=== PATIENT | female | born 1980 | race Caucasian/White ===

== ENCOUNTER 2019-05-11 22:26 | Emergency (ER) | payer BC, OTHER ==
[2019-05-11 22:33] VITALS: PULSE 95
[2019-05-12] MEDS ORDERED: diphenhydrAMINE 50 MG CAP PO STA (00:06)
--- NOTE | 2019-05-12 00:08 | ED ---
Anxiety HPI - General Chief Complaint: Anxiety Stated Complaint: chest tightness sob Time Seen by Provider: 05/11/19 23:28 Source: patient Mode of arrival: ambulatory - History of Present Illness Initial Comments: Patient is a 38-year-old woman who presents to be evaluated for palpitations. She states she has been having occasional feelings of fluttering in her chest. These last for briefly for second or 2. They're not accompanied by pain. The patient states that tonight after she had a couple of these she began feeling like she was going to . She states that she may been hyperventilating and while go to the hospital. She states that in the interval since arriving here she has had resolution of the symptoms. She did not have chest pain. No dyspnea. No diaphoresis, nausea or vomiting. There is no lightheadedness coming symptoms or syncope. She states palpitations have been coming and going for number weeks. She believes that there may be some stress contributing. MD Complaint: anxiety, other (Palpitations) -: days(s) Symptoms: palpitations, dry mouth, sense of impending doom Place: home Previous History of Same: Yes Severity: severe Quality: improving Provoking factors: emotional stress Improves With: nothing Worsens With: nothing - Related Data Home Medications: Home Medications Medication Instructions Recorded Confirmed Escitalopram [Lexapro] 10 mg PO DAILY 05/11/19 05/11/19 Allergies/Adverse Reactions: Allergies Allergy/AdvReac Type Severity Reaction Status Date / Time No Known Allergies Allergy Verified 05/11/19 23:33 Review of Systems ROS Statement: Those systems with pertinent positive or pertinent negative responses have been documented in the HPI. ROS Other: All systems not noted in ROS Statement are negative. Constitutional: Denies: fever, weakness Eyes: Denies: vision change Respiratory: Denies: cough, dyspnea Cardiovascular: Reports: palpitations. Denies: chest pain, dyspnea on exertion, edema, syncope Gastrointestinal: Denies: abdominal pain, nausea, vomiting Musculoskeletal: Denies: back pain Neurological: Denies: headache, weakness, confusion Psychiatric: Reports: anxiety. Denies: depression Past Medical History Past Medical History: No Reported History History of Any Multi-Drug Resistant Organisms: None Reported Past Surgical History: Section Past Psychological History: Anxiety Smoking Status: Never smoker Past Alcohol Use History: Occasional Past Drug Use History: None Reported General Exam Limitations: no limitations General appearance: alert, in no apparent distress, anxious Head exam: Present: atraumatic, normocephalic Eye exam: Present: normal appearance. Absent: scleral icterus, conjunctival injection ENT exam: Present: normal oropharynx Respiratory exam: Present: normal lung sounds bilaterally. Absent: respiratory distress, wheezes, rales, rhonchi, stridor Cardiovascular Exam: Present: regular rate, normal rhythm, normal heart sounds. Absent: systolic murmur, diastolic murmur, rubs, gallop GI/Abdominal exam: Present: soft. Absent: distended, tenderness, guarding, rebound, rigid, mass Extremities exam: Present: normal inspection, normal capillary refill. Absent: pedal edema, calf tenderness Back exam: Present: normal inspection. Absent: CVA tenderness (R), CVA tenderness (L) Neurological exam: Present: alert Psychiatric exam: Present: anxious. Absent: depressed, suicidal ideation Skin exam: Present: warm, dry, intact, normal color. Absent: rash Course Vital Signs 05/11/19 22:28 Temperature 98.3 F Pulse Rate 95 Respiratory 16 Rate Blood Pressure 125/75 O2 Sat by Pulse 100 Oximetry Disposition Clinical Impression: Panic attack Disposition: HOME SELF-CARE Condition: Good Instructions (If sedation given, give patient instructions): Heart Palpitations (DC), Panic Attack (ED) Is patient prescribed a controlled substance at d/c from ED?: No Referrals: Gerson Min MD [Primary Care Provider] - 1-2 days Ramesh Griffiths MD [STAFF PHYSICIAN] - 1-2 days
[2019-05-12 00:58] VITALS: BP 151/96; RESP 18; TEMP 98.7
== END 2019-05-12 00:56 | disposition home or self-care (01) ==
LOC: EC 22:26
DX: F41.0 Panic disorder [episodic paroxysmal anxiety] (principal); R00.2 Palpitations; Z79.899 Other long term (current) drug therapy
CPT/HCPCS: 93005; 99283

== ENCOUNTER 2019-07-17 16:30 | Inpatient (IN) | payer BC, MEDICAID ==
--- NOTE | 2019-07-17 17:01 | ED ---
Psych HPI - General Source: patient, RN notes reviewed, old records reviewed Mode of arrival: ambulatory Limitations: no limitations - History of Present Illness MD Complaint: suicidal ideation, feels depressed -: month(s) Associated Psychiatric Symptoms: depression, suicidal ideation History of same: Yes Quality: constant Improves With: none Worsens With: none Context: not taking psychiatric medications Associated Symptoms: denies other symptoms Treatments Prior to Arrival: placed on mental health hold If Self Harm: admits thoughts of self harm <Robin Jefferson - Last Filed: 07/17/19 20:41> <Rito Cummings - Last Filed: 07/17/19 22:02> - General Chief Complaint: Psychiatric Symptoms Stated Complaint: EPS eval Time Seen by Provider: 07/17/19 16:40 - History of Present Illness Initial Comments: This is a 39-year-old female to ER for evaluation. Patient presents today for evaluation regards to psychiatric illness. Patient presents with her friend stating that she is does not feel like she can trust herself does have a at home with 3 kids. No drugs or alcohol. She is to drink a little bit when she had a psychiatric panic attack about 2 months ago since then patient is not drank she's been on 2 different psychiatric medications. Patient has no improve the segment after medications exam making her worse and currently does feel suicidal (Robin Jefferson) - Related Data Home Medications Medication Instructions Recorded Confirmed ALPRAZolam [Xanax] 0.25 - 0.5 mg PO HS PRN 07/17/19 07/17/19 Cholecalciferol (Vitamin D3) 6,000 units PO DAILY 07/17/19 07/17/19 [Vitamin D3] Geritol Liquid 15 ml PO DAILY 07/17/19 07/17/19 Sertraline [Zoloft] 50 mg PO HS 07/17/19 07/17/19 Allergies Allergy/AdvReac Type Severity Reaction Status Date / Time No Known Allergies Allergy Verified 07/17/19 18:15 Review of Systems ROS Other: All systems not noted in ROS Statement are negative. <Robin Jefferson - Last Filed: 07/17/19 20:41> ROS Other: All systems not noted in ROS Statement are negative. <Rito Cummings - Last Filed: 07/17/19 22:02> ROS Statement: Those systems with pertinent positive or pertinent negative responses have been documented in the HPI. Past Medical History Past Medical History: No Reported History History of Any Multi-Drug Resistant Organisms: None Reported Past Surgical History: Section Past Psychological History: Anxiety, Depression Smoking Status: Never smoker Past Alcohol Use History: Occasional Past Drug Use History: None Reported <Robin Jefferson - Last Filed: 07/17/19 20:41> General Exam Limitations: no limitations General appearance: alert, in no apparent distress Head exam: Present: atraumatic, normocephalic, normal inspection Eye exam: Present: normal appearance, PERRL, EOMI. Absent: scleral icterus, conjunctival injection, periorbital swelling ENT exam: Present: normal exam, mucous membranes moist Neck exam: Present: normal inspection. Absent: tenderness, meningismus, lymphadenopathy Respiratory exam: Present: normal lung sounds bilaterally. Absent: respiratory distress, wheezes, rales, rhonchi, stridor Cardiovascular Exam: Present: regular rate, normal rhythm, normal heart sounds. Absent: systolic murmur, diastolic murmur, rubs, gallop, clicks GI/Abdominal exam: Present: soft, normal bowel sounds. Absent: distended, tenderness, guarding, rebound, rigid Extremities exam: Present: normal inspection, full ROM, normal capillary refill. Absent: tenderness, pedal edema, joint swelling, calf tenderness Back exam: Present: normal inspection Neurological exam: Present: alert, oriented X3, CN II-XII intact Psychiatric exam: Present: normal affect, normal mood Skin exam: Present: warm, dry, intact, normal color. Absent: rash <Robin Jefferson - Last Filed: 07/17/19 20:41> Course <Robin Jefferson - Last Filed: 07/17/19 20:41> Vital Signs 07/17/19 16:34 Temperature 98.8 F Pulse Rate 88 Respiratory 18 Rate Blood Pressure 149/96 O2 Sat by Pulse 98 Oximetry - Reevaluation(s) Reevaluation #1: 07/17/19 17:42 Medically clear for psychiatric evaluation (Robin Jefferson) Medical Decision Making <Rito Cummings - Last Filed: 07/17/19 22:02> - Medical Decision Making . Female whose care was signed out at shift change awaiting EPS evaluation, presenting with depression and suicidal ideation. Patient does voluntarily sign in for psychiatric evaluation and treatment. She will be admitted to this institution. (Rito Cummings) Disposition <Robin Jefferson - Last Filed: 07/17/19 20:41> Is patient prescribed a controlled substance at d/c from ED?: No Decision to Admit Reason: Admit from EC Decision Date: 07/17/19 Decision Time: 22:02 <Rito Cummings - Last Filed: 07/17/19 22:02> Clinical Impression: Depression, Suicidal ideation Disposition: ADMITTED IP TO THIS HOSP Condition: Stable Referrals: Gerson Min MD [Primary Care Provider] - 1-2 days
[2019-07-17] MEDS ORDERED: ACETAMINOPHEN TAB 500 MG TAB PO STA (20:44)
[2019-07-17] MEDS ORDERED: ONDANSETRON ODT 4 MG TAB PO STA (20:44)
[2019-07-17] MEDS ORDERED: ZIPRASIDONE 20 MG VIAL IM PRN (23:45)
[2019-07-17] MEDS ORDERED: MAGNESIUM HYDROXIDE 2,400 MG/10 ML CUP PO PRN (23:45)
[2019-07-17] MEDS ORDERED: ACETAMINOPHEN TAB 325 MG TAB PO PRN (23:45)
[2019-07-17] MEDS ORDERED: MAG HYDROX/AL HYDROX/SIMETH 30 ML CUP PO PRN (23:45)
[2019-07-17] MEDS ORDERED: SERTRALINE 100 MG TAB PO SCH (23:45)
[2019-07-17] MEDS ORDERED: LORazepam 2 MG/ML INJ IM PRN (23:47)
[2019-07-18 01:03] LABS: Appearance,Urine Cloudy (Clear); Bilirubin,Urine Negative (Negative); Blood,Urine Negative (Negative); Color,Urine Yellow; Glucose,Urine (UA) Negative (Negative); Hyaline Casts,Urine 5 /lpf (0-2); Ketones,Urine Negative (Negative); Leukocyte Esterase,Urine Negative (Negative); Mucus,Urine Many /hpf; Nitrite,Urine Negative (Negative); Protein,Urine Trace (Negative); RBC,Urine 1 /hpf (0-5); Specific Gravity,Urine 1.016 (1.001-1.035); Squamous Epithelial Cell,Urine 1 /hpf (0-4); Urobilinogen,Urine <2.0 mg/dL (<2.0); WBC,Urine 1 /hpf (0-5)
[2019-07-18] MEDS: LORazepam 1 MG TAB PO PRN (07:27)
[2019-07-18 08:39] LABS: Basophils # (A) 0.1 k/uL (0-0.2); Basophils % (A) 1 %; Eosinophils # (A) 0.1 k/uL (0-0.7); Eosinophils % (A) 2 %; HCT 37.7 % (34.0-46.0); HGB 11.8 gm/dL (11.4-16.0); Hypochromasia Marked; Lymphocytes % (A) 30 %; MCH 23.7 pg (25.0-35.0); MCHC 31.3 g/dL (31.0-37.0); MCV 75.6 fL (80.0-100.0); Mean Platelet Volume 7.8; Microcytosis Slight; Monocytes # (A) 0.5 k/uL (0-1.0); Monocytes % (A) 7 %; Neutrophils # (A) 3.9 k/uL (1.3-7.7); Neutrophils % (A) 59 %; Platelet Count 340 k/uL (150-450); RBC 4.99 m/uL (3.80-5.40); RDW 15.6 % (11.5-15.5); WBC 6.7 k/uL (3.8-10.6)
[2019-07-18 08:54] LABS: ALT 16 U/L (4-34); AST 16 U/L (14-36); African American GFR (CKD) >90 (>60 ml/min/1.73 sqM); Albumin 4.4 g/dL (3.5-5.0); Alkaline Phosphatase 51 U/L (38-126); Anion Gap 8 mmol/L; Blood Urea Nitrogen 10 mg/dL (7-17); Calcium 9.7 mg/dL (8.4-10.2); Carbon Dioxide 29 mmol/L (22-30); Chloride 104 mmol/L (98-107); Cholesterol 113 mg/dL (<200); Glucose 105 mg/dL (74-99); HDL Cholesterol 40 mg/dL (40-60); LDL Cholesterol,Calculated 44 mg/dL (0-99); Non-African American GFR(CKD) >90 (>60 ml/min/1.73 sqM); Potassium 3.9 mmol/L (3.5-5.1); Sodium 141 mmol/L (137-145); Total Bilirubin 0.5 mg/dL (0.2-1.3); Total Protein 7.6 g/dL (6.3-8.2); Triglycerides 145 mg/dL (<150)
[2019-07-18] MEDS ORDERED: CHOLECALCIFEROL 6000 UNIT PO SCH (09:00)
[2019-07-18] MEDS: CHOLECALCIFEROL 1,000 UNIT TAB PO SCH (11:53)
[2019-07-18] MEDS: SERTRALINE 100 MG TAB PO SCH (12:47)
[2019-07-18] MEDS: busPIRone HCl 10 MG TAB PO SCH ×2 (12:47→22:46)
--- NOTE | 2019-07-18 12:49 | P.HP ---
Psychiatric H&P - . H&P Date: 07/18/19 History & Physical: Allergies Allergy/AdvReac Type Severity Reaction Status Date / Time No Known Allergies Allergy Verified 07/18/19 01:10 Vital Signs Temp 98.2 F 07/18/19 00:06 Pulse 128 H 07/18/19 07:28 Resp 14 07/18/19 00:06 BP 169/84 07/18/19 07:28 Pulse Ox 100 07/18/19 00:06 Intake & Output 07/17/19 07/18/19 07/18/19 18:59 06:59 18:59 Weight 124.738 kg 124.313 kg Laboratory Last Values WBC 6.7 k/uL (3.8-10.6) 07/18/19 08:29 RBC 4.99 m/uL (3.80-5.40) 07/18/19 08:29 Hgb 11.8 gm/dL (11.4-16.0) 07/18/19 08:29 Hct 37.7 % (34.0-46.0) 07/18/19 08:29 MCV 75.6 fL (80.0-100.0) L 07/18/19 08:29 MCH 23.7 pg (25.0-35.0) L 07/18/19 08:29 MCHC 31.3 g/dL (31.0-37.0) 07/18/19 08:29 RDW 15.6 % (11.5-15.5) H 07/18/19 08:29 Plt Count 340 k/uL (150-450) 07/18/19 08:29 Neutrophils % 59 % 07/18/19 08:29 Lymphocytes % 30 % 07/18/19 08:29 Monocytes % 7 % 07/18/19 08:29 Eosinophils % 2 % 07/18/19 08:29 Basophils % 1 % 07/18/19 08:29 Neutrophils # 3.9 k/uL (1.3-7.7) 07/18/19 08:29 Lymphocytes # 2.0 k/uL (1.0-4.8) 07/18/19 08:29 Monocytes # 0.5 k/uL (0-1.0) 07/18/19 08:29 Eosinophils # 0.1 k/uL (0-0.7) 07/18/19 08:29 Basophils # 0.1 k/uL (0-0.2) 07/18/19 08:29 Hypochromasia Marked 07/18/19 08:29 Microcytosis Slight 07/18/19 08:29 Sodium 141 mmol/L (137-145) 07/18/19 08:29 Potassium 3.9 mmol/L (3.5-5.1) 07/18/19 08:29 Chloride 104 mmol/L (98-107) 07/18/19 08:29 Carbon Dioxide 29 mmol/L (22-30) 07/18/19 08:29 Anion Gap 8 mmol/L 07/18/19 08:29 BUN 10 mg/dL (7-17) 07/18/19 08:29 Creatinine 0.78 mg/dL (0.52-1.04) 07/18/19 08:29 Est GFR (CKD-EPI)AfAm >90 (>60 ml/min/1.73 sqM) 07/18/19 08:29 Est GFR (CKD-EPI)NonAf >90 (>60 ml/min/1.73 sqM) 07/18/19 08:29 Glucose 105 mg/dL (74-99) H 07/18/19 08:29 Calcium 9.7 mg/dL (8.4-10.2) 07/18/19 08:29 Total Bilirubin 0.5 mg/dL (0.2-1.3) 07/18/19 08:29 AST 16 U/L (14-36) 07/18/19 08:29 ALT 16 U/L (4-34) 07/18/19 08:29 Alkaline Phosphatase 51 U/L (38-126) 07/18/19 08:29 Total Protein 7.6 g/dL (6.3-8.2) 07/18/19 08:29 Albumin 4.4 g/dL (3.5-5.0) 07/18/19 08:29 Triglycerides 145 mg/dL (<150) 07/18/19 08:29 Cholesterol 113 mg/dL (<200) 07/18/19 08:29 LDL Cholesterol, Calc 44 mg/dL (0-99) 07/18/19 08:29 HDL Cholesterol 40 mg/dL (40-60) 12/17/19 08:29 TSH 1.710 mIU/L (0.465-4.680) 07/18/19 08:29 Urine Color Yellow 07/18/19 00:20 Urine Appearance Cloudy (Clear) H 07/18/19 00:20 Urine pH 6.0 (5.0-8.0) 07/18/19 00:20 Ur Specific [place] 1.016 (1.001-1.035) 07/18/19 00:20 Urine Protein Trace (Negative) H 07/18/19 00:20 Urine Glucose (UA) Negative (Negative) 07/18/19 00:20 Urine Ketones Negative (Negative) 07/18/19 00:20 Urine Blood Negative (Negative) 07/18/19 00:20 Urine Nitrite Negative (Negative) 07/18/19 00:20 Urine Bilirubin Negative (Negative) 07/18/19 00:20 Urine Urobilinogen <2.0 mg/dL (<2.0) 07/18/19 00:20 Ur Leukocyte Esterase Negative (Negative) 07/18/19 00:20 Urine RBC 1 /hpf (0-5) 07/18/19 00:20 Urine WBC 1 /hpf (0-5) 07/18/19 00:20 Ur Squamous Epith Cells 1 /hpf (0-4) 07/18/19 00:20 Hyaline Casts 5 /lpf (0-2) H 07/18/19 00:20 Urine Mucus Many /hpf (None) H 07/18/19 00:20 Urine HCG, Qual Not Detected (Not Detectd) 07/18/19 00:20 07/18/19 12:38 IDENTIFYING DATA: Patient is a 39-year-old female who is currently has 3 kids lives at home and 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 HPI: Patient presented to the hospital and seen in the emergency department for depression, suicidal ideations and anxiety. Patient endorsed having panic attacks recently. Patient was admitted to the mental health unit and was agreeable to seek to display card writer for admission. She states that for the past 7 years she has been having a progressive increase in her anxiety. She states that she has been having panic attacks daily which consist of her feeling short of breath, having palpitations, and a fear of . She states that she is finding it difficult to work and function at home. She states that her is not supportive of her and that she is having frequent worry about her kids. Patient claims that she has been tried on different medications by her PCP including Zoloft 50 mg at night, Xanax 0.5 mg and also has tried Effexor in the past. Patient states that recently she has been having suicidal ideations and fear of overdosing at home. She admits to guilt and poor concentration. Poor sleep at home. She denies any recreational drug use at this time denies any alcohol or marijuana. Denies any cigarette use. Patient denies any suicidal or homicidal ideations intent or plan. At this time patient denies any auditory or visual hallucinations. PAST PSYCHIATRIC HISTORY: Patient states that she has previously been on Xanax, Effexor, Lexapro and Zoloft. She denies any inpatient psychiatric admissions in the past. She claims that she has been mainly treated by her primary care physician and has not seen a psychiatrist. No previous suicide attempts. PMH:denies ALLERGIES: as per EMR CHEMICAL DEPENDENCY HISTORY: as per HPI FAMILY PSYCHIATRIC/SUBSTANCE USE HISTORY: Claims that her mother had panic attacks and anxiety SOCIAL HISTORY: States that she was born and raised in [facility] and attended some college after high school. She currently works as a nurse's aide and nearby hospital is currently and has 3 kids and lives in a house. MENTAL STATUS EXAM: General Appearance: [Patient appears to be overweight, stated age is alert, and attempts to cooperate. Patient appears to be tearful and anxious, fair hygiene and grooming. Behavior: Patient is anxiously seated without any agitated behavior. Tearful. Speech: Patient's speech is fluent and nonpressured. Hesitant. Mood/Affect: Patient reports their mood is Vinay anxious, affect is congruent and tearful. Suicidality/Homicidality: Patient denies having any suicidal or homicidal ideation intent or plan. Perceptions: Patient denies any auditory or visual hallucinations. Though content/process: There is no evidence of any delusional thought content and thought process is linear and goal-directed. Catastrophizing. Memory and concentration: AOX3, grossly intact for the purposes of this session. Can spell "WORLD" backwards Judgment and insight: Fair STRENGTHS/WEAKNESSES: strength is that patient is resilient, weaknesses that patient has chronic mental illness and multiple home stressors. INTELLECT: average IMPRESSIONS: Depressive disorder unspecified Panic disorder without agoraphobia PLAN: -Patient is admitted under voluntary status to MHU for stabilization of psychiatric symptoms and safety. Patient signed adult voluntary form and medication consent and is placed in patient's chart. -Medications : Will start patient on Zoloft 100 mg daily for anxiety/mood. We'll also start patient on BuSpar 10 mg twice a day for anxiety. We'll start trazodone 50 mg daily at bedtime for sleep/mood. -Ativan and Geodon PRN for agitation/aggression -Patient was informed of the risks, benefits and side effects of the medication and patient verbally consented to taking the medications. Patient signed med consent form and was placed in chart. -NRT - not need as patient does not spoke -SW on board for discharge planning
--- NOTE | 2019-07-18 13:57 | P.CONS ---
History of Present Illness - Reason for Consult Consult date: 07/18/19 medical management Requesting physician: Sergey Del Rosario - Chief Complaint Suicidal ideation, depression - History of Present Illness this is a 39-year-old femalewith history of anxiety, depression, panic disorder presented to the ER accompanied by a friend with ongoing depression,anxiety, suicidal. Reported to the ER doctor that she was suicidal,did not trust herself at home-afraid of overdosing herself.states she's been having a rough time over the last 2 months due to panic attacks,sleep deprivation, and personal issues at home. She reports feeling embarrassed being in the MHU.attempted to go to counseling prior to that experienced issues with insurance coverage followed by appointment times conflicting with work schedule. Denies recreational drugs/alcohol.Home medication regimen includes Zoloft, and xanax.suicide precautions initiated andadmitted to the mental health unit. afebrile, normal WBC.vital signs stable, maintaining O2 sats in the high 90s on room air.electrolytes within normal limits.UA negative. Review of Systems ROS Other: All systems not noted in ROS Statement are negative. ROS Statement: Those systems with pertinent positive or pertinent negative responses have been documented in the HPI. Past Medical History Past Medical History: No Reported History History of Any Multi-Drug Resistant Organisms: None Reported Past Surgical History: Adenoidectomy Past Psychological History: Anxiety, Depression, Panic Disorder Smoking Status: Never smoker Past Alcohol Use History: Occasional Past Drug Use History: None Reported Medications and Allergies Home Medications Medication Instructions Recorded Confirmed Type ALPRAZolam [Xanax] 0.25 - 0.5 mg PO HS PRN 07/17/19 07/18/19 History Cholecalciferol (Vitamin D3) 6,000 units PO DAILY 07/17/19 07/18/19 History [Vitamin D3] Geritol Liquid 15 ml PO DAILY 07/17/19 07/18/19 History Sertraline [Zoloft] 50 mg PO HS 07/17/19 07/18/19 History Allergies Allergy/AdvReac Type Severity Reaction Status Date / Time No Known Allergies Allergy Verified 07/18/19 01:10 Physical Exam Vitals: Vital Signs Temp Pulse Pulse Resp BP BP Pulse Ox 07/18/19 07:28 128 H 169/84 07/18/19 00:06 98.2 F 74 14 140/88 100 07/17/19 23:39 72 20 158/98 100 07/17/19 16:34 98.8 F 88 18 149/96 98 Intake and Output 07/17/19 07/18/19 07/18/19 22:59 06:59 14:59 Other: Weight 124.738 kg 124.313 kg PHYSICAL EXAM: VITAL SIGNS: [as above] GENERAL: sitting up in a chair,teary-eyed, no acute distress HEENT: Conjunctivae normal. eyes normal.oral mucosa moist NECK: No JVD. No thyroid enlargement. No LNs CARDIOVASCULAR: S1, S2 regular. No murmur RESPIRATION: Breath sounds diminished in the bases. No rhonchi or crackles. No bronchial breathing. ABDOMEN: Soft, nontender . No guarding. no masses palpable. No ascites, No hepatosplenomegaly.Bowel sounds heard. LEGS: No edema. no swelling PSYCHIATRY: Alert and oriented X3, mood and affect anxious, tearful. NERVOUS SYSTEM: Cranial N 2-12 grossly normal. Moves all 4 limbs. No focal deficits. Strength and sensation grossly intact.. Skin: no rash . Joints: No active swelling. No inflammation. Lymphatic system. No LN neck axilla. Results CBC & Chem 7: 07/18/19 08:29 07/18/19 08:29 Labs: Abnormal Lab Results - Last 24 Hours (Table) 07/18/19 07/18/19 07/18/19 Range/Units 00:20 08:29 08:29 MCV 75.6 L (80.0-100.0) fL MCH 23.7 L (25.0-35.0) pg RDW 15.6 H (11.5-15.5) % Glucose 105 H (74-99) mg/dL Urine Appearance Cloudy H (Clear) Urine Protein Trace H (Negative) Hyaline Casts 5 H (0-2) /lpf Urine Mucus Many H (None) /hpf Assessment and Plan Assessment: depression, suicidal ideation Anxiety panic disorder plan: Continue on current medication regime ,monitoring and symptomatic treatment. Home meds have been reviewed and resumed accordingly.further recommendations pending. Thank you for the consult. The impression and plan of care has been dictated as directed. : I performed a history and examination of this patient, discussed the same with the dictator. I agree with the dictator's note ,documented as a scribe. Any additional findings or plans will be noted.
[2019-07-18 19:36] LABS: Hemoglobin A1C 4.9 % (4.0-6.0)
[2019-07-18] MEDS: traZODone HCL 50 MG TAB PO SCH (22:46)
[2019-07-19] MEDS: LORazepam 1 MG TAB PO PRN (06:41)
[2019-07-19] MEDS: SERTRALINE 100 MG TAB PO SCH (08:46)
[2019-07-19] MEDS: busPIRone HCl 10 MG TAB PO SCH (08:46)
[2019-07-19] MEDS: CHOLECALCIFEROL 1,000 UNIT TAB PO SCH (08:46)
--- NOTE | 2019-07-19 12:24 | P.PN ---
Progress Note - Text Progress Note Date: 07/19/19 Subjective: Patient was seen wandering the hallways after activities group and was directable and agreeable to speak with leader writer in the office. Patient recieved 1mg of Ativan PO this morning for a panic attack. She states that she has been attempting to breathe slower and to use her coping skills and distraction techniques to help with her panic attacks. She did state that her anxiety has decreased mildly and she claims that she is not as tearful today which she is happy about. Patient states that she continues to feel guilt about being in the hospital and knows that she has many things to do at home when she returns. Patient claims that she has been going to groups and finding other patients on the unit to be helping her and keeping her distracted. At this time patient states that she did have some upset stomach yesterday however has improved today and was able to tolerate breakfast. Patient states that she slept through the night and claims that "I haven't had a good sleep-wake that in a long time". She admits to fair energy. At this time patient denies any auditory or visual hallucinations. She denies any suicidal or homicidal ideations, intent or plan. Does not endorse any delusions or paranoia. Mental Status Examination: General Appearance: Patient appears to be overweight, stated age is alert, and attempts to cooperate. Patient appears to be anxious, fair hygiene and grooming. Behavior: Patient is anxiously seated without any agitated behavior. Speech: Patient's speech is fluent and nonpressured. Hesitant. Mood/Affect: Patient reports their mood is depressed and anxious, affect is congruent Suicidality/Homicidality: Patient denies having any suicidal or homicidal ideation intent or plan. Perceptions: Patient denies any auditory or visual hallucinations. Though content/process: There is no evidence of any delusional thought content and thought process is linear and goal-directed. Catastrophizing. Memory and concentration: AOX3, grossly intact for the purposes of this session. Can spell "WORLD" backwards Judgment and insight: Fair Assessment: Depressive disorder unspecified Panic disorder without agoraphobia PLAN: -Patient is admitted under voluntary status to MHU for stabilization of psychiatric symptoms and safety. Patient signed adult voluntary form and medication consent and is placed in patient's chart. -Medications : Will increase Zoloft 150 mg daily for anxiety/mood. We'll increase BuSpar 15 mg twice a day for anxiety. We'll continue with trazodone 50 mg daily at bedtime for sleep/mood. -Ativan and Geodon PRN for agitation/aggression -Encouraged to continue attending groups and working on coping skills and distress tolerance. -NRT - not need as patient does not spoke -EKG reviewed. No acute abnormalities noted. -SW on board for discharge planning. Liekly discharge back home in 2-3 days.
[2019-07-19] MEDS: busPIRone HCl 5 MG TAB PO SCH (22:31)
[2019-07-19] MEDS: traZODone HCL 50 MG TAB PO SCH (22:31)
[2019-07-20] MEDS: busPIRone HCl 5 MG TAB PO SCH ×3 (09:32→23:09)
[2019-07-20] MEDS: SERTRALINE 100 MG TAB PO SCH (09:32)
[2019-07-20] MEDS: CHOLECALCIFEROL 1,000 UNIT TAB PO SCH (09:32)
--- NOTE | 2019-07-20 13:59 | P.PN ---
Progress Note - Text Progress Note Date: 07/20/19 Subjective: Patient was seen after eating her lunch and was directable and agreeable to speak with tag writer in the office. Patient claims that "today was not a good day" after stating that she had her visit her Wednesday night and appeared to be upset that patient was in the hospital and was saying that he wanted them both to be getting treatment and he should not be at home. Patient states that her went home and overdosed on her Xanax and Zoloft and told her about it which she then called his friend to pick them up and taken the hospital. Patient states that she has been more anxious and worried about her and claims that "he supposed to be my stable rock and he is doing something like this". Patient was also preoccupied about going back to her kids and states that her father is taking care of them at this time. Patient states that she feels the medication has been making her feel better and she is feeling less anxious overall. She did have a panic attack after finding about what was going on with her however has been using coping strategies and techniques to endeavor her attention and work on her breathing. She states that her nausea and upset stomach has been improving and is able to eat meals now. Patient states that she slept through the night with no problems. She admits to fair energy. At this time patient denies any auditory or visual hallucinations. She denies any suicidal or homicidal ideations, intent or plan. Does not endorse any delusions or paranoia. Mental Status Examination: General Appearance: Patient appears to be overweight, stated age is alert, and attempts to cooperate. Patient appears to be less anxious, fair hygiene and grooming. Behavior: Patient is anxiously seated without any agitated behavior. Speech: Patient's speech is fluent and nonpressured. Hesitant. Mood/Affect: Patient reports their mood is depressed and anxious, affect is congruent Suicidality/Homicidality: Patient denies having any suicidal or homicidal ideation intent or plan. Perceptions: Patient denies any auditory or visual hallucinations. Though content/process: There is no evidence of any delusional thought content and thought process is linear and goal-directed. Preoccupied with the safety of her . Memory and concentration: AOX3, grossly intact for the purposes of this session. Can spell "WORLD" backwards Judgment and insight: Fair Assessment: Depressive disorder unspecified Panic disorder without agoraphobia PLAN: -Patient is admitted under voluntary status to MHU for stabilization of psychiatric symptoms and safety. Patient signed adult voluntary form and medication consent and is placed in patient's chart. -Medications : Will continue with Zoloft 150 mg daily for anxiety/mood. We'll increase BuSpar 15 mg 3 times a day for anxiety. We'll continue with trazodone 50 mg daily at bedtime for sleep/mood. -Ativan and Geodon PRN for agitation/aggression -Encouraged to continue attending groups and working on coping skills and distress tolerance. -NRT - not need as patient does not spoke -SW on board for discharge planning. Liekly discharge back home early next week.
[2019-07-20] MEDS: traZODone HCL 50 MG TAB PO SCH (23:09)
[2019-07-21] MEDS: busPIRone HCl 5 MG TAB PO SCH ×3 (09:30→22:19)
[2019-07-21] MEDS: SERTRALINE 100 MG TAB PO SCH (09:31)
[2019-07-21] MEDS: CHOLECALCIFEROL 1,000 UNIT TAB PO SCH (09:31)
--- NOTE | 2019-07-21 12:59 | P.PN ---
Progress Note - Text Progress Note Date: 07/21/19 Subjective: Patient was seen wandering the hallways and was directable and agreeable to speak with headline writer in the office. Patient claims that she continues to feel anxiety during the day and feels "down" well-being in the hospital and continues to endorse some guilt. She states that she was able to get some relief yesterday when she learned that her was admitted to [facility] and she was able to speak with him on the phone and noted that he is doing better. She states that she has been having a decrease in her panic attacks and denies having one today/this morning. She states that she feels the medication is helping her gradually. Patient claims that she has been anxious about taking care of her kids and getting home before [place]. She also states that she has been trying to make new friends on the unit and going to groups. Patient claims that she did have some improvement in her sleep last night however was awoken by her roommate. She admits to fair energy. At this time patient denies any auditory or visual hallucinations. She denies any suicidal or homicidal i deations, intent or plan. Does not endorse any delusions or paranoia. Mental Status Examination: General Appearance: Patient appears to be overweight, stated age is alert, and attempts to cooperate. Patient has fair hygiene and grooming. Behavior: Patient is anxiously seated without any agitated behavior. Speech: Patient's speech is fluent and nonpressured. Hesitant/anxious. Mood/Affect: Patient reports their mood is depressed and anxious, affect is congruent Suicidality/Homicidality: Patient denies having any suicidal or homicidal ideation intent or plan. Perceptions: Patient denies any auditory or visual hallucinations. Though content/process: There is no evidence of any delusional thought content and thought process is linear and goal-directed. Memory and concentration: AOX3, grossly intact for the purposes of this session. Can spell "WORLD" backwards Judgment and insight: Fair, improving mildly. Assessment: Depressive disorder unspecified Panic disorder without agoraphobia PLAN: -Patient is admitted under voluntary status to MHU for stabilization of psychiatric symptoms and safety. Patient signed adult voluntary form and medication consent and is placed in patient's chart. -Medications : Will increase Zoloft 200 mg daily for anxiety/mood. We'll continue with BuSpar 15 mg 3 times a day for anxiety, this may be increased over the weekend if needed. We'll continue with trazodone 50 mg daily at bedtime for sleep/mood. -Ativan and Geodon PRN for agitation/aggression -Encouraged to continue attending groups and working on coping skills and distress tolerance. -NRT - not need as patient does not spoke -SW on board for discharge planning. Liekly discharge home on Wednesday.
[2019-07-21] MEDS: traZODone HCL 50 MG TAB PO SCH (23:19)
[2019-07-22] MEDS: CHOLECALCIFEROL 1,000 UNIT TAB PO SCH (09:32)
[2019-07-22] MEDS: busPIRone HCl 5 MG TAB PO SCH ×3 (09:32→23:45)
[2019-07-22] MEDS: SERTRALINE 100 MG TAB PO SCH (09:32)
--- NOTE | 2019-07-22 17:35 | P.PN ---
Progress Note - Text Progress Note Date: 07/22/19 over history: Patient is seen in cross coverage today. She reports that her mood is doing better. She did have a panic attack earlier this morning use her coping skills. She does not voice any adverse psychotropic medication side effects. She appears motivated for outpatient treatment. She is attending groups. Mental status exam: She is alert and cooperative with the interview. Her mood appears improved. She does not verbalize any thoughts of harm to self or others. No evidence of psychosis or agitation. Plan: Patient will be maintained on current psychotropic medication regimen. Continue to monitor for any medication side effects and monitor her ongoing response to treatment.
[2019-07-22] MEDS: traZODone HCL 50 MG TAB PO SCH (23:44)
[2019-07-23] MEDS: busPIRone HCl 5 MG TAB PO SCH ×3 (10:16→22:44)
[2019-07-23] MEDS: SERTRALINE 100 MG TAB PO SCH (10:17)
[2019-07-23] MEDS: CHOLECALCIFEROL 1,000 UNIT TAB PO SCH (10:17)
--- NOTE | 2019-07-23 19:13 | P.PN ---
Progress Note - Text Progress Note Date: 07/23/19 interval history: Patient seen in cross coverage today. She reports feeling some anxiety, talks about some nervousness about thinking about discharge for tomorrow. She slept about 5 or 6 hours last night.she describes some feelings of shakiness as well as some rapid heartbeat at times. We did discuss possible transitional side effects from medication and she will continue to monitor. Mental status exam: She is alert and cooperative with the interview. Her speech is fluent, not rapid or pressured. Her thought processes are organized. Her mood overall seems to be stable. She does not verbalize any thoughts of harm to self others. No evidence of psychosis or agitation. Plan: We'll maintain current psychotropic medications as prescribed. Monitor for any psychotropic medication side effects as well as some her ongoing response to treatment. She does talk about discharge planning for tomorrow.
[2019-07-23] MEDS: traZODone HCL 50 MG TAB PO SCH (22:44)
[2019-07-24 07:01] VITALS: BP 122/57; PULSE 113; RESP 16; TEMP 98.5
[2019-07-24] MEDS: CHOLECALCIFEROL 1,000 UNIT TAB PO SCH (09:18)
[2019-07-24] MEDS: busPIRone HCl 5 MG TAB PO SCH ×2 (09:18→16:07)
[2019-07-24] MEDS: SERTRALINE 100 MG TAB PO SCH (09:19)
--- NOTE | 2019-07-24 11:32 | P.DS ---
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 HPI: Patient presented to the hospital and seen in the emergency department for depression, suicidal ideations and anxiety. Patient endorsed having panic attacks recently. Patient was admitted to the mental health unit. She states that for the past 7 years she has been having a progressive increase in her anxiety. She states that she has been having panic attacks daily which consist of her feeling short of breath, having palpitations, and a fear of . She states that she is finding it difficult to work and function at home. She states that her is not supportive of her and that she is having frequent worry about her kids. Patient claims that she has been tried on different medications by her PCP including Zoloft 50 mg at night, Xanax 0.5 mg and also has tried Effexor in the past. Patient states that recently she has been having suicidal ideations and fear of overdosing at home. She admits to guilt and poor concentration. Poor sleep at home. She denies any recreational drug use at this time denies any alcohol or marijuana. Denies any cigarette use. Patient denies any suicidal or homicidal ideations intent or plan. At the time patient denies any auditory or visual hallucinations. PAST PSYCHIATRIC HISTORY: Patient states that she has previously been on Xanax, Effexor, Lexapro and Zoloft. She denies any inpatient psychiatric admissions in the past. She claims that she has been mainly treated by her primary care physician and has not seen a psychiatrist. No previous suicide attempts. PMH:denies ALLERGIES: as per EMR CHEMICAL DEPENDENCY HISTORY: as per HPI FAMILY PSYCHIATRIC/SUBSTANCE USE HISTORY: Claims that her mother had panic attacks and anxiety SOCIAL HISTORY: States that she was born and raised in [place] and attended some college after high school. She currently works as a nurse's aide and nearby hospital is currently and has 3 kids and lives in a house. MENTAL STATUS EXAM: General Appearance:Patient appears to be overweight, stated age is alert, and attempts to cooperate. Patient appears to be sitting comfortably, fair hygiene and grooming. Behavior: Patient is sitting comfortably and is pleasant and cooperative during the interview. Speech: Patient's speech is fluent and nonpressured. Mood/Affect: Patient reports their mood is good, affect is congruent l. Suicidality/Homicidality: Patient denies having any suicidal or homicidal ideation intent or plan. Perceptions: Patient denies any auditory or visual hallucinations. Though content/process: There is no evidence of any delusional thought content and thought process is linear and goal-directed. Memory and concentration: AOX3, grossly intact for the purposes of this session. Can spell "WORLD" backwards Judgment and insight: Fair STRENGTHS/WEAKNESSES: strength is that patient is resilient, weaknesses that patient has chronic mental illness and multiple home stressors. INTELLECT: average IMPRESSIONS: Depressive disorder unspecified Panic disorder without agoraphobia Hospital Course: Patient was admitted on a voluntary basis, placed on routine observation in group and activity therapy were ordered. Patient was also ordered routine laboratory studies and a medical consultation was also ordered. Patient also was returned to his prior medications for her medical problems. She was started on Zoloft 100 mg daily for anxiety/mood. She was also started patient on BuSpar 10 mg twice a day for anxiety. She was started on trazodone 50 mg daily at bedtime for sleep/mood. -Ativan and Geodon PRN for agitation/aggression -Patient was informed of the risks, benefits and side effects of the medication and patient verbally consented to taking the medications. Patient signed med consent form and was placed in chart. The patient continued to have periods of tearfulness. The patient was active and visible on the unit. The patient's Zoloft was increased to 200 mg by mouth daily and BuSpar was increased to 15 mg 3 times a day. The patient tolerated the changes in medication without any side effects. The patient started showing slow improvement in her mood and functioning. Her affect became brighter. Discharge plans were initiated. The patient participated actively in discharge planning. The patient's condition was stabilized and she was discharged home on 07/24/2019. Discharge Mental Status: Appearance/Attitude: Patient is neatly and appropriately dressed, makes eye contact and was cooperative. Behavior: Patient did not display any psychomotor agitation or retardation. Speech/Language: Patient's speech was spontaneous of normal volume and rhythm and he was coherent Thought Process: Patient was goal-directed there is no evidence of loose association or flight of ideas Thought Content: Patient denied any auditory or visual hallucinations no delusions or paranoid ideation were elicited. Suicidal/Homicidal Ideation: Patient denies any current suicidal or homicidal ideation Sensorium/Cognition: Patient is alert and oriented to person, place, and time and his recent and remote memory were grossly intact Mood/Affect: Patient's mood is more positive and his affect is appropriate to his mood Insight/Judgment: Patient's insight and judgment are fair Risk Assessment: Patient's risk for readmission is moderate to the patient not be compliant with medications and follow-up care, use alcohol and/or drugs Discharge Plan: Patient will be discharged home. Plans to follow up as an outpatient. Patient Condition at Discharge: Stable Patient Condition at Discharge: Stable Plan - Discharge Summary New Discharge Prescriptions: New busPIRone HCl [Buspar] 15 mg PO TID #90 tab traZODone HCL [Desyrel] 50 mg PO HS #30 tab Acetaminophen Tab [Tylenol] 650 mg PO Q4HR PRN tab PRN Reason: Pain/Discomfort Sertraline [Zoloft] 200 mg PO DAILY #60 tab Continue Cholecalciferol (Vitamin D3) [Vitamin D3] 6,000 units PO DAILY Geritol Liquid 15 ml PO DAILY Discontinued Sertraline [Zoloft] 50 mg PO HS ALPRAZolam [Xanax] 0.25 - 0.5 mg PO HS PRN PRN Reason: Insomnia Discharge Medication List Cholecalciferol (Vitamin D3) [Vitamin D3] 6,000 units PO DAILY 07/17/19 [History] Geritol Liquid 15 ml PO DAILY 07/17/19 [History] Acetaminophen Tab [Tylenol] 650 mg PO Q4HR PRN tab 07/24/19 [Rx] Sertraline [Zoloft] 200 mg PO DAILY #60 tab 07/24/19 [Rx] busPIRone HCl [Buspar] 15 mg PO TID #90 tab 07/24/19 [Rx] traZODone HCL [Desyrel] 50 mg PO HS #30 tab 07/24/19 [Rx] Follow up Appointment(s)/Referral(s): [facility] [Outside] - 08/08/19 4:00 pm (08/08/18 at 4pm with Anahi) Gerson Min MD [Primary Care Provider] - 1-2 days Patient Instructions/Handouts: Depression (DC), Anxiety (GEN) Activity/Diet/Wound Care/Special Instructions: Activity and diet as tolerated. Avoid the use of street drugs and alcohol. Take all medications as prescribed. When you are in need of refills on your medications please contact your medical provider and/or outpatient psychiatrist to have this done. Please go to scheduled outpatient appointment for aftercare treatment. If symptoms return or become worse, call the crisis line at and/or go to the nearest emergency room for evaluation. Discharge Disposition: HOME SELF-CARE
[2019-07-24 13:24] VITALS: BMI 45.7
--- NOTE | 2019-07-24 14:04 | P.PN ---
Subjective Progress Note Date: 07/24/19 Discharge Note: Patient was seen and chart was reviewed. Case discussed with staff. The patient reports doing better and denies any new problems at this time. Patient states that she was going to groups and trying to participate as best as could. Patient claims that her anxiety has been improving Patient also states that her anxiety and mood have been improving on the current medications and is thankful for it. She states that she is feeling more supported on the unit at this time. She admits to fair energy and fair appetite. She claims that she slept better last night and does not remember having a nightmare. At this time patient denies any suicidal or homical ideations, intent or plan. Patient denies any auditory, visual hallucinations and denies any paranoia or delusions. Patient denies any side effects from the medications and has been compliant with meds. Mental Status Exam: General Appearance: Patient appears to be stated age is alert, directable. fair hygiene and grooming. Patient has improving eye contact. Behavior: Patient is seated without any agitated behavior. Speech: Patient's speech is fluent and nonpressured. soft tone. Mood/Affect: Good mood, affect is congruent Suicidality/Homicidality: Patient denies having any suicidal or homicidal ideation intent or plan. Perceptions: Patient denies any auditory or visual hallucinations. Though content/process: There is no evidence of any delusional thought content and thought process is linear and goal-directed. Memory and concentration: AOX3, grossly intact for the purposes of this session. Judgment and insight: Improving. Assessment Major depressive disorder, without psychotic features Panic disorder Plan: Plan to continue current medications. Patient will be discharged home today to follow-up as an outpatient. Discharge planning was completed. Patient was discharged on Zoloft 200 mg by mouth daily and BuSpar 15 mg by mouth 3 times a day. Objective - Vital Signs Vital signs: Vital Signs Temp 98.5 F 07/24/19 06:25 Pulse 113 H 07/24/19 06:25 Resp 16 07/24/19 06:25 BP 122/57 07/24/19 06:25 Pulse Ox 98 07/21/19 06:20 Intake & Output 07/23/19 07/24/19 07/24/19 18:59 06:59 18:59 Weight 124.6 kg 124.6 kg - Labs CBC & Chem 7: 07/18/19 08:29 07/18/19 08:29 Assessment and Plan (1) Depression Current Visit: Yes Status: Acute Code(s): F32.9 - MAJOR DEPRESSIVE DISORDER, SINGLE EPISODE, UNSPECIFIED SNOMED Code(s): 01206065
== END 2019-07-24 16:50 | disposition home or self-care (01) | DRG 897 ==
LOC: EC 16:30 → 3MHU 23:10
PROVIDERS: ADMIT Psychiatry & Neurology Psychiatry; ATTEND Psychiatry & Neurology Psychiatry
DX: F10.94 Alcohol use, unspecified with alcohol-induced mood disorder (principal); F12.99 Cannabis use, unspecified with unspecified cannabis-induced disorder; F32.9 Major depressive disorder, single episode, unspecified; F41.0 Panic disorder [episodic paroxysmal anxiety]; Z79.899 Other long term (current) drug therapy
CPT/HCPCS: 80053; 80061; 81001; 81025; 82075; 83036; 84443; 85025; 93005; 99285

== ENCOUNTER 2021-07-21 09:15 | Emergency (ER) | payer OTHER ==
[2021-07-21 09:20] VITALS: RESP 18; TEMP 98.9
--- NOTE | 2021-07-21 09:45 | XR ---
EXAMINATION TYPE: XR chest 2V DATE OF EXAM: 07/21/2021 COMPARISON: NONE TECHNIQUE: PA and lateral views submitted. HISTORY: Cough FINDINGS: The lungs are clear and there is no pneumothorax, pleural effusion, or focal pneumonia. Heart size normal. Slightly coarsened interstitium. Biapical pleural thickening. Degenerative changes of the spi ne. IMPRESSION: 1. Correlate for bronchitis or mild central interstitial pneumonitis..
[2021-07-21 11:36] VITALS: BP 127/87; PULSE 72
--- NOTE | 2021-07-21 11:38 | ED ---
URI HPI - General Chief Complaint: Upper Respiratory Infection Stated Complaint: chest tightness, wheezing Time Seen by Provider: 07/21/21 09:21 Source: patient, RN notes reviewed Mode of arrival: ambulatory Limitations: no limitations - History of Present Illness Initial Comments: Patient is a 41-year-old female that presents to the emergency department complaining of upper respiratory tract symptoms for the past several days. She notes that last time she waited hastings but bilateral pneumonia. She'll she can stay recently did a Covid test was running on results. She was otherwise well- appearing in no apparent distress. She denied any chest pain shortness of breath headache nausea vomiting diarrhea constipation fever fatigue chills. - Related Data Home Medications Medication Instructions Recorded Confirmed guaiFENesin [Mucinex] 600 mg PO Q12H PRN 07/21/21 07/21/21 Previous Rx's Medication Instructions Recorded Azithromycin [Zithromax] 500 mg PO DAILY #5 tab 07/21/21 Allergies Allergy/AdvReac Type Severity Reaction Status Date / Time No Known Allergies Allergy Verified 07/21/21 10:36 Review of Systems ROS Statement: Those systems with pertinent positive or pertinent negative responses have been documented in the HPI. ROS Other: All systems not noted in ROS Statement are negative. Past Medical History Past Medical History: No Reported History History of Any Multi-Drug Resistant Organisms: None Reported Past Surgical History: Adenoidectomy Past Psychological History: Anxiety, Depression, Panic Disorder Smoking Status: Current every day smoker Past Alcohol Use History: Occasional Past Drug Use History: None Reported General Exam Limitations: no limitations General appearance: alert, in no apparent distress, obese Head exam: Present: atraumatic, normocephalic, normal inspection Eye exam: Present: normal appearance, PERRL, EOMI. Absent: scleral icterus, conjunctival injection, periorbital swelling ENT exam: Present: normal exam, mucous membranes moist Neck exam: Present: normal inspection. Absent: tenderness, meningismus, lymphadenopathy Respiratory exam: Present: normal lung sounds bilaterally. Absent: respiratory distress, wheezes, rales, rhonchi, stridor Cardiovascular Exam: Present: regular rate, normal rhythm, normal heart sounds. Absent: systolic murmur, diastolic murmur, rubs, gallop, clicks GI/Abdominal exam: Present: soft, normal bowel sounds. Absent: distended, tenderness, guarding, rebound, rigid Extremities exam: Present: normal inspection, full ROM, normal capillary refill. Absent: tenderness, pedal edema, joint swelling, calf tenderness Neurological exam: Present: alert, oriented X3 Psychiatric exam: Present: normal affect, normal mood Skin exam: Present: warm, dry, intact, normal color. Absent: rash Course Vital Signs 07/21/21 07/21/21 09:17 09:27 Temperature 98.9 F Pulse Rate 89 Respiratory 18 18 Rate Blood Pressure 151/81 O2 Sat by Pulse 97 Oximetry Medical Decision Making - Medical Decision Making 41-year-old female with upper respiratory tract symptoms. Covid test, chest x-ray ordered. Covid test was previously done prior to arrival we'll call labs with results. Chest x-ray shows possible bronchitis or interstitial pneumonitis. Antibiotics sent to pharmacy. Case discussed with Dr. Cummings, patient can discharge home - Radiology Data Radiology results: report reviewed, image reviewed Chest x-ray: Correlate for bronchitis or mild central interstitial pneumonitis. Disposition Clinical Impression: Acute upper respiratory infection Disposition: HOME SELF-CARE Condition: Stable Instructions (If sedation given, give patient instructions): Upper Respiratory Infection (ED) Additional Instructions: Please return to the Emergency Department if symptoms worsen or any other concerns. Follow-up with primary care 1-2 days. Take antibiotics as prescribed until complete. Prescriptions: Azithromycin [Zithromax] 500 mg PO DAILY #5 tab Is patient prescribed a controlled substance at d/c from ED?: No Referrals: Gerson Min MD [Primary Care Provider] - 1-2 days Time of Disposition: 11:37
== END 2021-07-21 12:00 | disposition home or self-care (01) ==
LOC: EC 09:15
DX: J06.9 Acute upper respiratory infection, unspecified (principal); F17.200 Nicotine dependence, unspecified, uncomplicated; F32.A Depression, unspecified; F41.0 Panic disorder [episodic paroxysmal anxiety]; Z72.89 Other problems related to lifestyle
CPT/HCPCS: 71046; 99283

== ENCOUNTER → 2021-07-21 | Outpatient (CLI) | payer OTHER | END | disposition home or self-care (01) | LOC: LABWHC1 09:08 | PROVIDERS: ATTEND Emergency Medicine | DX: Z20.822 Contact with and (suspected) exposure to COVID-19 (principal) | CPT/HCPCS: 87635 ==

== ENCOUNTER → 2021-07-22 | Outpatient (CLI) | payer OTHER | END | disposition home or self-care (01) | LOC: LABWHC1 12:33 | PROVIDERS: ATTEND Emergency Medicine | DX: Z20.822 Contact with and (suspected) exposure to COVID-19 (principal) | CPT/HCPCS: 87635 ==

== ENCOUNTER 2022-08-16 17:01 | Emergency (ER) | payer OTHER ==
[2022-08-16 17:09] VITALS: TEMP 98.4
[2022-08-16] MEDS ORDERED: SODIUM CHLORIDE 0.9% 1,000 ML IV STA (17:29)
[2022-08-16] MEDS ORDERED: LORazepam 2 MG/ML INJ IV STA (17:30)
[2022-08-16 17:43] LABS: Basophils # (A) 0.1 k/uL (0-0.2); Basophils % (A) 1 %; Eosinophils # (A) 0.1 k/uL (0-0.7); Eosinophils % (A) 1 %; HCT 36.7 % (34.0-46.0); Lymphocytes % (A) 23 %; MCH 24.6 pg (25.0-35.0); MCHC 32.7 g/dL (31.0-37.0); MCV 75.4 fL (80.0-100.0); Mean Platelet Volume 7.7; Microcytosis Slight; Monocytes # (A) 0.5 k/uL (0-1.0); Monocytes % (A) 5 %; Neutrophils # (A) 6.1 k/uL (1.3-7.7); Neutrophils % (A) 69 %; Platelet Count 297 k/uL (150-450); RBC 4.86 m/uL (3.80-5.40); WBC 8.8 k/uL (3.8-10.6)
[2022-08-16 17:56] LABS: ALT 17 U/L (4-34); AST 15 U/L (14-36); African American GFR (CKD) >90 (>60 ml/min/1.73 sqM); Albumin 4.4 g/dL (3.5-5.0); Alkaline Phosphatase 48 U/L (38-126); Amylase 47 U/L (30-110); Anion Gap 8 mmol/L; Blood Urea Nitrogen 12 mg/dL (7-17); Calcium 9.3 mg/dL (8.4-10.2); Carbon Dioxide 26 mmol/L (22-30); Chloride 106 mmol/L (98-107); Glucose 105 mg/dL (74-99); INR 1.1 (<1.2); Lipase 54 U/L (23-300); Magnesium 1.8 mg/dL (1.6-2.3); Non-African American GFR(CKD) >90 (>60 ml/min/1.73 sqM); Partial Thromboplastin Time 25.4 sec (22.0-30.0); Potassium 3.7 mmol/L (3.5-5.1); Prothrombin Time 11.2 sec (9.0-12.0); Sodium 140 mmol/L (137-145); Total Bilirubin 0.3 mg/dL (0.2-1.3); Total Protein 7.4 g/dL (6.3-8.2)
--- NOTE | 2022-08-16 18:04 | XR ---
EXAMINATION TYPE: XR chest 2V DATE OF EXAM: 08/16/2022 COMPARISON: 07/21/2021 HISTORY: Chest pain TECHNIQUE: 2 views FINDINGS: Heart and mediastinum are normal. Lungs are clear. Diaphragm is normal. Bony thorax is inta ct. IMPRESSION: Normal chest. No change.
[2022-08-16 18:12] LABS: Appearance,Urine Cloudy (Clear); Bacteria,Urine Rare /hpf; Bilirubin,Urine Negative (Negative); Blood,Urine Negative (Negative); Color,Urine Yellow; Glucose,Urine (UA) Negative (Negative); Hyaline Casts,Urine 2 /lpf (0-2); Ketones,Urine Negative (Negative); Leukocyte Esterase,Urine Moderate (Negative); Mucus,Urine Many /hpf; Nitrite,Urine Negative (Negative); Protein,Urine 1+ (Negative); RBC,Urine 2 /hpf (0-5); Specific Gravity,Urine 1.027 (1.001-1.035); Squamous Epithelial Cell,Urine 14 /hpf (0-4); WBC,Urine 37 /hpf (0-5)
[2022-08-16 19:23] VITALS: RESP 18
[2022-08-16] MEDS ORDERED: METOPROLOL SUCCINATE (ER) 25 MG TAB.ER.24H PO STA (19:30)
--- NOTE | 2022-08-16 19:44 | ED ---
General Adult HPI - General Chief complaint: Chest Pain Stated complaint: chest pressure Time Seen by Provider: 08/16/22 17:13 Source: patient Mode of arrival: ambulatory Limitations: no limitations - History of Present Illness Initial comments: Patient is a 42-year-old female presenting with chief complaint of chest pain. Patient states the pain is been present for the last week. Patient also states that she is hyperaware of her heartbeat. She admits to nausea but no vomiting. She admits to diarrhea. No fever, chills, cough, congestion, sore throat. No abdominal pain. No difficulty breathing. She admits to lightheadedness at times. She was recently started on Zoloft and trazodone. - Related Data Previous Rx's Medication Instructions Recorded Metoprolol Succinate [Metoprolol 12.5 mg PO DAILY #4 tab 08/16/22 Succinate ER] Allergies Allergy/AdvReac Type Severity Reaction Status Date / Time No Known Allergies Allergy Verified 08/16/22 19:14 Review of Systems ROS Statement: Those systems with pertinent positive or pertinent negative responses have been documented in the HPI. ROS Other: All systems not noted in ROS Statement are negative. Past Medical History Past Medical History: No Reported History History of Any Multi-Drug Resistant Organisms: None Reported Past Surgical History: Adenoidectomy, Section Past Psychological History: Anxiety, Depression, Panic Disorder Smoking Status: Former smoker Past Alcohol Use History: Occasional Past Drug Use History: None Reported General Exam Limitations: no limitations General appearance: alert, in no apparent distress Head exam: Present: atraumatic, normocephalic, normal inspection Eye exam: Present: normal appearance, EOMI. Absent: periorbital swelling, periorbital tenderness Neck exam: Present: normal inspection, full ROM Respiratory exam: Present: normal lung sounds bilaterally. Absent: respiratory distress, wheezes, rales, rhonchi, stridor Cardiovascular Exam: Present: regular rate, normal rhythm, normal heart sounds. Absent: systolic murmur, diastolic murmur, rubs, gallop, clicks GI/Abdominal exam: Present: soft. Absent: distended, tenderness, guarding, rebound, rigid Neurological exam: Present: alert, oriented X3, CN II-XII intact Psychiatric exam: Present: normal affect, normal mood Skin exam: Present: warm, dry, intact, normal color. Absent: rash Course Vital Signs 08/16/22 08/16/22 08/16/22 17:06 19:22 20:03 Temperature 98.4 F Pulse Rate 102 H 84 82 Respiratory 22 18 18 Rate Blood Pressure 144/92 154/81 131/83 O2 Sat by Pulse 98 99 98 Oximetry EKG Findings - EKG Comments: EKG Findings:: Sinus rhythm with ventricular rate 82. KS interval 159. QRS 91. QT 360. QTC 399. No ischemic changes. Medical Decision Making - Medical Decision Making Was pt. sent in by a medical professional or institution (, PA, FUEL CELL BUILDER, urgent care, hospital, or usp...) When possible be specific @ -[No] Did you speak to anyone other than the patient for history (EMS, parent, family, police, friend...)? What history was obtained from this source @ -[No] Did you review nursing and triage notes (agree or disagree)? Why? @ -[I reviewed and agree with nursing and triage notes] Were old charts reviewed (outside hosp., previous admission, EMS record, old EKG, old radiological studies, urgent care reports/EKG's, usp records)? Report findings @ -[No old charts were reviewed] Differential Diagnosis (chest pain, altered mental status, abdominal pain women, abdominal pain men, vaginal bleeding, weakness, fever, dyspnea, syncope, heada mohit, dizziness, GI bleed, back pain, seizure, CVA, palpatations, mental health)? @ -[facility] Differential Chest Pain: Stable Angina, Unstable Angina, STEMI, NSTEMI, anxiety, Pneumothorax, Musculoskeletal, Esophageal Spasm GERD This is not meant to be an all-inclusive list. EKG interpreted by me (3pts min.). @ -[As above] X-rays interpreted by me (1pt min.). @ -Chest x-ray shows no acute process CT interpreted by me (1pt min.). @ -[None done] U/S interpreted by me (1pt. min.). @ -[None done] What testing was considered but not performed or refused? (CT, X-rays, U/S, labs)? Why? @ -[None] What meds were considered but not given or refused? Why? @ -[None] Did you discuss the management of the patient with other professionals (pr ofessionals i.e. , PA, FUEL CELL BUILDER, lab, RT, psych nurse, social media marketer, carpet jack, teacher, correctional program officer, case aide)? Give summary @ -[No] Was smoking cessation discussed for >3mins.? @ -[No] Was critical care preformed (if so, how long)? @ -[No] Were there social determinants of health that impacted care today? How? (Homelessness, low income, unemployed, alcoholism, drug addiction, tra nsportation, low edu. Level, literacy, decrease access to med. care, usp, rehab)? @ -[No] Was there de-escalation of care discussed even if they declined (Discuss DNR or withdrawal of care, Hospice)? DNR status @ -[No] What co-morbidities impacted this encounter? (DM, HTN, Smoking, COPD, CAD, Cancer, CVA, ARF, Chemo, Hep., AIDS, mental health diagnosis, sleep apnea, morbid obesity)? @ -[None] Was patient admitted / discharged? Hospital course, mention meds given and route, prescriptions, significant lab abnormalities, going to OR and other pertinent info. @ -Patient is a 42-year-old female presenting with chief complaint of chest pain. Pain is been ongoing for the last week. Patient also states that she has been able to feel her heartbeat consistently throughout the last week which is very uncomfortable for her. Physical examination is unremarkable. Lab work is essentially unremarkable. Chest x-ray shows no acute process. EKG shows no ischemic changes. Patient was given 1 mg Ativan IV. On reassessment patient is requesting a trial of a beta damian to help decrease her sensation of "fight or flight". We trialled a 12.5 mg dose of metoprolol and observed the patient. Patient reported improvement in symptoms and vital stated within normal limits. She is provided with a week's worth of metoprolol 12.5 mg. Patient informs me she has no point with her PCP on . I stressed the importance of follow-up regarding this issue. She is agreeable with discharge at this time. Follow-up with PCP. Report back to ER with any new or worsening symptoms. Discussed return parameters and answered all questions. Patient conveyed verbal understanding and agreed to the plan. I discussed this case in detail with my attending Dr. Luna Undiagnosed new problem with uncertain prognosis? @ -[No] Drug Therapy requiring intensive monitoring for toxicity (Heparin, Nitro, Insulin, Cardizem)? @ -[No] Were any procedures done? @ -[No] Diagnosis/symptom? @ -Atypical chest pain Acute, or Chronic, or Acute on Chronic? @ -Acute Uncomplicated (without systemic symptoms) or Complicated (systemic symptoms)? @ -Uncomplicated Side effects of treatment? @ -[No] Exacerbation, Progression, or Severe Exacerbation? @ -[No] Poses a threat to life or bodily function? How? (Chest pain, USA, ID, pneumonia, PE, COPD, DKA, ARF, appy, cholecystitis, CVA, Diverticulitis, Homicidal, Suicidal, threat to staff... and all critical care pts) @ -[No] Diagnosis/symptom? @Anxiety Acute, or Chronic, or Acute on Chronic? @Acute on chronic Uncomplicated (without systemic symptoms) or Complicated (systemic symptoms)? @Uncomplicated Side effects of treatment? @ [none] Exacerbation, Progression, or Severe Exacerbation] @ [no] Poses a threat to life or bodily function? @ [no] - Lab Data Result diagrams: 08/16/22 17:31 08/16/22 17:31 Lab Results 08/16/22 08/16/22 08/16/22 Range/Units 17:31 17:31 17:31 WBC 8.8 (3.8-10.6) k/uL RBC 4.86 (3.80-5.40) m/uL Hgb 12.0 (11.4-16.0) gm/dL Hct 36.7 (34.0-46.0) % MCV 75.4 L (80.0-100.0) fL MCH 24.6 L (25.0-35.0) pg MCHC 32.7 (31.0-37.0) g/dL RDW 15.0 (11.5-15.5) % Plt Count 297 (150-450) k/uL MPV 7.7 Neutrophils % 69 % Lymphocytes % 23 % Monocytes % 5 % Eosinophils % 1 % Basophils % 1 % Neutrophils # 6.1 (1.3-7.7) k/uL Lymphocytes # 2.0 (1.0-4.8) k/uL Monocytes # 0.5 (0-1.0) k/uL Eosinophils # 0.1 (0-0.7) k/uL Basophils # 0.1 (0-0.2) k/uL Microcytosis Slight PT 11.2 (9.0-12.0) sec INR 1.1 (<1.2) APTT 25.4 (22.0-30.0) sec Sodium 140 (137-145) mmol/L Potassium 3.7 (3.5-5.1) mmol/L Chloride 106 (98-107) mmol/L Carbon Dioxide 26 (22-30) mmol/L Anion Gap 8 mmol/L BUN 12 (7-17) mg/dL Creatinine 0.66 (0.52-1.04) mg/dL Est GFR (CKD-EPI)AfAm >90 (>60 ml/min/1.73 sqM) Est GFR (CKD-EPI)NonAf >90 (>60 ml/min/1.73 sqM) Glucose 105 H (74-99) mg/dL Calcium 9.3 (8.4-10.2) mg/dL Magnesium 1.8 (1.6-2.3) mg/dL Total Bilirubin 0.3 (0.2-1.3) mg/dL AST 15 (14-36) U/L ALT 17 (4-34) U/L Alkaline Phosphatase 48 (38-126) U/L Troponin I (0.000-0.034) ng/mL Total Protein 7.4 (6.3-8.2) g/dL Albumin 4.4 (3.5-5.0) g/dL Amylase 47 (30-110) U/L Lipase 54 (23-300) U/L Urine Color Urine Appearance (Clear) Urine pH (5.0-8.0) Ur Specific [place] (1.001-1.035) Urine Protein (Negative) Urine Glucose (UA) (Negative) Urine Ketones (Negative) Urine Blood (Negative) Urine Nitrite (Negative) Urine Bilirubin (Negative) Urine Urobilinogen (<2.0) mg/dL Ur Leukocyte Esterase (Negative) Urine RBC (0-5) /hpf Urine WBC (0-5) /hpf Ur Squamous Epith Cells (0-4) /hpf Urine Bacteria (None) /hpf Hyaline Casts (0-2) /lpf Urine Mucus (None) /hpf Influenza Type A (PCR) (Not Detectd) Influenza Type B (PCR) (Not Detectd) RSV (PCR) (Not Detectd) SARS-CoV-2 (PCR) (Not Detectd) 08/16/22 08/16/22 08/16/22 Range/Units 17:31 17:42 19:22 WBC (3.8-10.6) k/uL RBC (3.80-5.40) m/uL Hgb (11.4-16.0) gm/dL Hct (34.0-46.0) % MCV (80.0-100.0) fL MCH (25.0-35.0) pg MCHC (31.0-37.0) g/dL RDW (11.5-15.5) % Plt Count (150-450) k/uL MPV Neutrophils % % Lymphocytes % % Monocytes % % Eosinophils % % Basophils % % Neutrophils # (1.3-7.7) k/uL Lymphocytes # (1.0-4.8) k/uL Monocytes # (0-1.0) k/uL Eosinophils # (0-0.7) k/uL Basophils # (0-0.2) k/uL Microcytosis PT (9.0-12.0) sec INR (<1.2) APTT (22.0-30.0) sec Sodium (137-145) mmol/L Potassium (3.5-5.1) mmol/L Chloride (98-107) mmol/L Carbon Dioxide (22-30) mmol/L Anion Gap mmol/L BUN (7-17) mg/dL Creatinine (0.52-1.04) mg/dL Est GFR (CKD-EPI)AfAm (>60 ml/min/1.73 sqM) Est GFR (CKD-EPI)NonAf (>60 ml/min/1.73 sqM) Glucose (74-99) mg/dL Calcium (8.4-10.2) mg/dL Magnesium (1.6-2.3) mg/dL Total Bilirubin (0.2-1.3) mg/dL AST (14-36) U/L ALT (4-34) U/L Alkaline Phosphatase (38-126) U/L Troponin I <0.012 (0.000-0.034) ng/mL Total Protein (6.3-8.2) g/dL Albumin (3.5-5.0) g/dL Amylase (30-110) U/L Lipase (23-300) U/L Urine Color Yellow Urine Appearance Cloudy H (Clear) Urine pH 6.0 (5.0-8.0) Ur Specific [place] 1.027 (1.001-1.035) Urine Protein 1+ H (Negative) Urine Glucose (UA) Negative (Negative) Urine Ketones Negative (Negative) Urine Blood Negative (Negative) Urine Nitrite Negative (Negative) Urine Bilirubin Negative (Negative) Urine Urobilinogen 2.0 (<2.0) mg/dL Ur Leukocyte Esterase Moderate H (Negative) Urine RBC 2 (0-5) /hpf Urine WBC 37 H (0-5) /hpf Ur Squamous Epith Cells 14 H (0-4) /hpf Urine Bacteria Rare H (None) /hpf Hyaline Casts 2 (0-2) /lpf Urine Mucus Many H (None) /hpf Influenza Type A (PCR) Not Detected (Not Detectd) Influenza Type B (PCR) Not Detected (Not Detectd) RSV (PCR) Not Detected (Not Detectd) SARS-CoV-2 (PCR) Not Detected (Not Detectd) Disposition Clinical Impression: Atypical chest pain, Anxiety Disposition: HOME SELF-CARE Condition: Good Instructions (If sedation given, give patient instructions): Metoprolol (By mouth), Chest Pain (ED), Anxiety (ED) Additional Instructions: Follow-up with PCP at scheduled appointment. Report back to ER with any new or worsening symptoms. Take medication as prescribed. Discontinue medication if experiencing side effects such as lightheadedness, passing out, profuse sweating, trembling. Prescriptions: Metoprolol Succinate [Metoprolol Succinate ER] 12.5 mg PO DAILY #4 tab Is patient prescribed a controlled substance at d/c from ED?: No Referrals: Gerson Min MD [Primary Care Provider] - 1-2 days Time of Disposition: 20:10
[2022-08-16 20:04] VITALS: BP 131/83; PULSE 82
== END 2022-08-16 20:10 | disposition home or self-care (01) ==
LOC: EC 17:01
DX: R07.89 Other chest pain (principal); F41.9 Anxiety disorder, unspecified; F32.A Depression, unspecified; Z87.891 Personal history of nicotine dependence; Z20.822 Contact with and (suspected) exposure to COVID-19
CPT/HCPCS: 36415; 93005; 80053; 82150; 83690; 83735; 84484; 85025; 85610; 85730; 81001; 87086; 87636; 71046; 99285; 96374; 96361; J2060

== ENCOUNTER 2022-08-18 12:18 | Inpatient (IN) | payer MEDICAID, OTHER ==
--- NOTE | 2022-08-18 12:39 | ED ---
General Adult HPI - General Chief complaint: Psychiatric Symptoms Stated complaint: mental health Time Seen by Provider: 08/18/22 12:26 Source: patient, family, RN notes reviewed Mode of arrival: ambulatory Limitations: no limitations - History of Present Illness Initial comments: Patient is a pleasant 42-year-old female present to the emergency department with concerns of depression and anxiety. Symptoms have been occurring for around a month. Patient has had multiple stressors. Patient does feel depressed and anxious. Patient is not sleeping well. Symptoms been constant. Symptoms especially have been worse for the past week. Patient is feeling suicidal. Patient was admitted round 3 years ago with similar symptoms. No homicidal thoughts. No alcohol or street drug use. Patient has some mild palpitations. - Related Data Home Medications Medication Instructions Recorded Confirmed Sertraline [Zoloft] 25 mg PO DAILY 08/18/22 08/18/22 busPIRone HCL 15 mg PO BID 08/18/22 08/18/22 traZODone HCL [Desyrel] 50 mg PO HS PRN 08/18/22 08/18/22 Previous Rx's Medication Instructions Recorded Metoprolol Succinate [Metoprolol 12.5 mg PO DAILY #4 tab 08/16/22 Succinate ER] Allergies Allergy/AdvReac Type Severity Reaction Status Date / Time No Known Allergies Allergy Verified 08/18/22 12:23 Review of Systems ROS Statement: Those systems with pertinent positive or pertinent negative responses have been documented in the HPI. ROS Other: All systems not noted in ROS Statement are negative. Constitutional: Denies: fever Eyes: Denies: eye pain ENT: Denies: ear pain Respiratory: Denies: cough Cardiovascular: Reports: palpitations. Denies: chest pain Endocrine: Denies: fatigue Gastrointestinal: Denies: abdominal pain Psychiatric: Reports: anxiety, depression, suicidal thoughts. Denies: auditory hallucinations Past Medical History Past Medical History: No Reported History History of Any Multi-Drug Resistant Organisms: None Reported Past Surgical History: Adenoidectomy, Section Past Psychological History: Anxiety, Depression, Panic Disorder Smoking Status: Former smoker Past Alcohol Use History: Occasional Past Drug Use History: None Reported General Exam Limitations: no limitations General appearance: alert, in no apparent distress, anxious Head exam: Present: normocephalic Eye exam: Present: normal appearance Neck exam: Present: normal inspection Respiratory exam: Present: normal lung sounds bilaterally Cardiovascular Exam: Present: regular rate, normal rhythm GI/Abdominal exam: Present: soft. Absent: tenderness Extremities exam: Present: normal inspection. Absent: pedal edema, calf tenderness Neurological exam: Present: alert Psychiatric exam: Present: depressed, anxious Skin exam: Present: normal color Course Vital Signs 08/18/22 08/18/22 12:19 15:19 Temperature 98.6 F Pulse Rate 100 86 Respiratory 16 16 Rate Blood Pressure 160/86 158/86 O2 Sat by Pulse 98 98 Oximetry Medical Decision Making - Medical Decision Making Patient was seen by mental health services with plans for admission Was pt. sent in by a medical professional or institution (, PA, ASSET PROTECTION GREETER, urgent care, hospital, or [place] [facility] [place]...) When possible be specific @ -No Did you speak to anyone other than the patient for history (EMS, parent, family, police, friend...)? What history was obtained from this source @ -Family is present and helps provide additional history including concerns of the patient. Did you review nursing and triage notes (agree or disagree)? Why? @ -I reviewed and agree with nursing and triage notes Were old charts reviewed (outside hosp., previous admission, EMS record, old EKG, old radiological studies, urgent care reports/EKG's, [place] [facility] records)? Report findings @ -No old charts were reviewed Differential Diagnosis (chest pain, altered mental status, abdominal pain women, abdominal pain men, vaginal bleeding, weakness, fever, dyspnea, syncope, headache, dizziness, GI bleed, back pain, seizure, CVA, palpatations, mental health)? @ -Differential includes but not limited to the health problems, medical problems, anxiety, depression, bipolar, schizophrenia, and other: Calm and this is not an all inclusive list EKG interpreted by me (3pts min.). @ -None X-rays interpreted by me (1pt min.). @ -None done CT interpreted by me (1pt min.). @ -None done U/S interpreted by me (1pt. min.). @ -None done What testing was considered but not performed or refused? (CT, X-rays, U/S, labs)? Why? @ -None What meds were considered but not given or refused? Why? @ -Considered Ativan however waited for psychiatric evaluation Did you discuss the management of the patient with other professionals (professionals i.e. , PA, ASSET PROTECTION GREETER, lab, RT, psych nurse, elementary school social worker, international project engineer, teacher, supply officer, ed case manager)? Give summary @ -Discussed case with psychiatric nurse. Was smoking cessation discussed for >3mins.? @ -No Was critical care preformed (if so, how long)? @ -No Were there social determinants of health that impacted care today? How? (Homelessness, low income, unemployed, alcoholism, drug addiction, transportation, low edu. Level, literacy, decrease access to med. care, nursing home, rehab)? @ -No Was there de-escalation of care discussed even if they declined (Discuss DNR or withdrawal of care, Hospice)? DNR status @ -No What co-morbidities impacted this encounter? (DM, HTN, Smoking, COPD, CAD, Cancer, CVA, ARF, Chemo, Hep., AIDS, mental health diagnosis, sleep apnea, morbid obesity)? @ -None Was patient admitted / discharged? Hospital course, mention meds given and route, prescriptions, significant lab abnormalities, going to OR and other pertinent info. @ -Patient will be admitted to mental health. Undiagnosed new problem with uncertain prognosis? @ -No Drug Therapy requiring intensive monitoring for toxicity (Heparin, Nitro, I nsulin, Cardizem)? @ -No Were any procedures done? @ -No Diagnosis/symptom? @ -Depression Acute, or Chronic, or Acute on Chronic? @ -Acute on chronic Uncomplicated (without systemic symptoms) or Complicated (systemic symptoms)? @ -default Side effects of treatment? @ -No Exacerbation, Progression, or Severe Exacerbation? @ -Severe exacerbation Poses a threat to life or bodily function? How? (Chest pain, USA, [place], pneumonia, PE, COPD, DKA, ARF, appy, cholecystitis, CVA, Diverticulitis, Homicidal, Suicidal, threat to staff... and all critical care pts) @ -Potential threat to life secondary to patient being suicidal. - Lab Data Lab Results 08/18/22 Range/Units 13:00 Urine Opiates Screen Not Detected (NotDetected) Ur Oxycodone Screen Not Detected (NotDetected) Urine Methadone Screen Not Detected (NotDetected) Ur Propoxyphene Screen Not Detected (NotDetected) Ur Barbiturates Screen Not Detected (NotDetected) U Tricyclic Antidepress Not Detected (NotDetected) Ur Phencyclidine Scrn Not Detected (NotDetected) Ur Amphetamines Screen Not Detected (NotDetected) U Methamphetamines Scrn Not Detected (NotDetected) U Benzodiazepines Scrn Detected H (NotDetected) Urine Cocaine Screen Not Detected (NotDetected) U Marijuana (THC) Screen Not Detected (NotDetected) Disposition Clinical Impression: Depression Disposition: TRANSFER TO PSYCH HOSP/UNIT Is patient prescribed a controlled substance at d/c from ED?: No Referrals: Gerson Min MD [Primary Care Provider] - 1-2 days Time of Disposition: 15:57
[2022-08-18 13:25] LABS: Amphetamine Screen,Urine Not Detected (NotDetected); Benzodiazepines Screen,Urine Detected (NotDetected); Cocaine Screen,Urine Not Detected (NotDetected); Opiate Screen,Urine Not Detected (NotDetected); Phencyclidine Screen,Urine Not Detected (NotDetected); Urn Cannabinoid Scrn Not Detected (NotDetected)
[2022-08-18 13:26] LABS: Barbiturate Screen,Urine Not Detected (NotDetected); Methadone Screen, Urine Not Detected (NotDetected); Oxycodone Screen, Urine Not Detected (NotDetected); Tricyclic Antidepressant,Urine Not Detected (NotDetected)
[2022-08-18] MEDS ORDERED: traZODone HCL 50 MG TAB PO PRN (18:34)
[2022-08-18] MEDS ORDERED: MAGNESIUM HYDROXIDE 2,400 MG/10 ML CUP PO PRN (18:36)
[2022-08-18] MEDS ORDERED: MAG HYDROX/AL HYDROX/SIMETH 30 ML CUP PO PRN (18:36)
[2022-08-18] MEDS ORDERED: HALOPERIDOL LACTATE 5 MG/ML 1 ML VIAL IM PRN (18:36)
[2022-08-18] MEDS ORDERED: ACETAMINOPHEN TAB 325 MG TAB PO PRN (18:36)
[2022-08-18] MEDS ORDERED: haloperidoL 5 MG TAB PO PRN (18:38)
[2022-08-18] MEDS ORDERED: hydrOXYzine HCL 50 MG/ML 1 ML VIAL IM PRN (18:38)
[2022-08-18] MEDS: busPIRone HCl 5 MG TAB PO SCH (21:12)
[2022-08-19] MEDS: hydrOXYzine pamoate 25 MG CAP PO PRN (00:09)
[2022-08-19] MEDS ORDERED: SERTRALINE 25 MG TAB PO SCH (09:00)
[2022-08-19] MEDS: busPIRone HCl 5 MG TAB PO SCH (09:08)
[2022-08-19] MEDS: METOPROLOL SUCCINATE (ER) 25 MG TAB.ER.24H PO SCH (09:08)
[2022-08-19 11:30] LABS: Basophils # (A) 0.1 k/uL (0-0.2); Basophils % (A) 1 %; Eosinophils # (A) 0.1 k/uL (0-0.7); Eosinophils % (A) 1 %; HCT 39.4 % (34.0-46.0); HGB 12.3 gm/dL (11.4-16.0); Lymphocytes # (A) 2.3 k/uL (1.0-4.8); Lymphocytes % (A) 32 %; MCH 23.5 pg (25.0-35.0); MCHC 31.2 g/dL (31.0-37.0); MCV 75.2 fL (80.0-100.0); Mean Platelet Volume 7.8; Microcytosis Slight; Monocytes # (A) 0.5 k/uL (0-1.0); Monocytes % (A) 7 %; Neutrophils # (A) 4.2 k/uL (1.3-7.7); Neutrophils % (A) 57 %; Platelet Count 330 k/uL (150-450); RBC 5.24 m/uL (3.80-5.40); RDW 14.7 % (11.5-15.5); WBC 7.4 k/uL (3.8-10.6)
[2022-08-19 11:47] LABS: Chloride 107 mmol/L (98-107); Potassium 4.4 mmol/L (3.5-5.1); Sodium 139 mmol/L (137-145)
[2022-08-19 12:04] LABS: ALT 17 U/L (4-34); AST 19 U/L (14-36); African American GFR (CKD) >90 (>60 ml/min/1.73 sqM); Albumin 4.6 g/dL (3.5-5.0); Alkaline Phosphatase 51 U/L (38-126); Anion Gap 7 mmol/L; Blood Urea Nitrogen 14 mg/dL (7-17); Calcium 9.6 mg/dL (8.4-10.2); Carbon Dioxide 25 mmol/L (22-30); Glucose 92 mg/dL (74-99); Non-African American GFR(CKD) >90 (>60 ml/min/1.73 sqM); Total Bilirubin 0.4 mg/dL (0.2-1.3); Total Protein 7.7 g/dL (6.3-8.2)
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
--- NOTE | 2022-08-19 13:36 | P.HPIM ---
History of Present Illness H&P Date: 08/19/22 Chief Complaint: Depression, suicidal This is a pleasant 42-year-old female, single mom, with history of anxiety, depression, panic disorder presented to the ER accompanied by family with ongoing depression,anxiety, panic attacks. suicidal. States she's been having a rough time over the last month, due to panic attacks,sleep deprivation, and personal issues at home.Patient voluntarily signed herself in into the inpatient mental health unit. She reports feeling embarrassed being in the MHU.Denies recreational drugs/alcohol. Afebrile, normal WBC.vital signs stable, maintaining O2 sats in the high 90s on room air.electrolytes within normal limits.UA negative. Denies chest pain, palpitations or shortness of breath. Denies lightheadedness dizziness or focal deficits. Review of Systems ROS Other: All systems not noted in ROS Statement are negative. ROS Statement: Those systems with pertinent positive or pertinent negative responses have been documented in the HPI. Past Medical History Past Medical History: No Reported History History of Any Multi-Drug Resistant Organisms: None Reported Past Surgical History: Adenoidectomy, Section Past Anesthesia/Blood Transfusion Reactions: No Reported Reaction Smoking Status: Never smoker Medications and Allergies Home Medications Medication Instructions Recorded Confirmed Type Metoprolol Succinate [Metoprolol 12.5 mg PO DAILY #4 tab 08/16/22 08/18/22 Rx Succinate ER] Sertraline [Zoloft] 25 mg PO DAILY 08/18/22 08/18/22 History busPIRone HCL 15 mg PO BID 08/18/22 08/18/22 History traZODone HCL [Desyrel] 50 mg PO HS PRN 08/18/22 08/18/22 History Allergies Allergy/AdvReac Type Severity Reaction Status Date / Time No Known Allergies Allergy Verified 08/18/22 12:23 Physical Exam Vitals: Vital Signs Temp Pulse Pulse Resp BP BP Pulse Ox 08/19/22 09:23 91 16 140/85 08/19/22 06:47 98.1 F 98 16 125/60 98 08/18/22 21:18 97.8 F 92 18 165/89 96 08/18/22 18:00 68 16 148/68 98 08/18/22 17:00 68 16 140/60 98 08/18/22 16:00 68 16 150/80 98 08/18/22 15:19 86 16 158/86 98 Intake and Output 08/18/22 08/19/22 08/19/22 22:59 06:59 14:59 Other: Weight 114.714 kg PHYSICAL EXAM: VITAL SIGNS: [as above] GENERAL: Alert and oriented 3, sitting up in a chair,no acute distress HEENT: Conjunctivae normal. eyes normal.oral mucosa moist NECK: No JVD. No thyroid enlargement. No LNs CARDIOVASCULAR: S1, S2 regular. No murmur RESPIRATION: Breath sounds diminished in the bases. No rhonchi or crackles. No bronchial breathing. ABDOMEN: Soft, nontender . No guarding. no masses palpable. No ascites, No hepatosplenomegaly.Bowel sounds heard. LEGS: No edema. no swelling NERVOUS SYSTEM: Cranial N 2-12 grossly normal. Moves all 4 limbs. No focal deficits. Strength and sensation grossly intact. Skin: Warm and dry, no rash. Results CBC & Chem 7: 08/19/22 10:46 08/19/22 10:46 Labs: Abnormal Lab Results - Last 24 Hours (Table) 08/18/22 08/19/22 Range/Units 13:00 10:46 MCV 75.2 L (80.0-100.0) fL MCH 23.5 L (25.0-35.0) pg U Benzodiazepines Scrn Detected H (NotDetected) Thrombosis Risk Factor Assmnt - Choose All That Apply Any of the Below Risk Factors Present?: No Assessment and Plan Assessment: Depression, suicidal ideation Anxiety panic disorder Morbid obesity, BMI 42.1 plan: Continue on current medication regime ,monitoring and symptomatic treatment. Home meds have been reviewed and resumed accordingly. Please don't hesitate to call with any questions or concerns. The impression and plan of care has been dictated as directed. : I performed a history and examination of this patient, discussed the same with the dictator. I agree with the dictator's note ,documented as a scribe. Any additional findings or plans will be noted.
[2022-08-19 14:57] LABS: Appearance,Urine Clear (Clear); Bilirubin,Urine Negative (Negative); Blood,Urine Negative (Negative); Color,Urine Yellow; Glucose,Urine (UA) Negative (Negative); Ketones,Urine Negative (Negative); Leukocyte Esterase,Urine Negative (Negative); Nitrite,Urine Negative (Negative); PH, Urine 5.5 (5.0-8.0); Protein,Urine Trace (Negative); Urobilinogen,Urine <2.0 mg/dL (<2.0)
[2022-08-19] MEDS ORDERED: traZODone HCL 50 MG TAB PO SCH (21:00)
[2022-08-19] MEDS: busPIRone HCl 10 MG TAB PO SCH (22:02)
[2022-08-20] MEDS: hydrOXYzine pamoate 25 MG CAP PO PRN (01:10)
[2022-08-20] MEDS ORDERED: SERTRALINE 25 MG TAB PO SCH (09:00)
[2022-08-20] MEDS: busPIRone HCl 10 MG TAB PO SCH ×2 (09:01→22:56)
[2022-08-20] MEDS: METOPROLOL SUCCINATE (ER) 25 MG TAB.ER.24H PO SCH (09:02)
[2022-08-20] MEDS ORDERED: clonazePAM 0.5 MG TAB PO PRN (10:02)
[2022-08-20] MEDS ORDERED: clonazePAM 0.5 MG TAB PO STA (10:02)
--- NOTE | 2022-08-20 11:51 | P.PN ---
Progress Note - Text Progress Note Date: 08/20/22 Interval History: Patient was seen wandering the hallways and was directable and agreeable to speak with resume writer in the office. The patient reports that she feels a little bit better but continues to experience severe anxiety. She reports that she continues to feel on occasion her panic and internal tremulousness. He does however that her anxiety is less severe than before. She is currently not endorsing any suicidal or homicidal ideation, intention, and/or plan. She is not reporting any auditory or visual hallucinations. She denies any paranoia or other delusions. She does report that she had difficulty with sleep last night with multiple frequent nighttime awakenings. This has also been noted by staff. The patient also reports issues with low appetite. She is otherwise not endorsing any medical issues or concerns. Mental Status Exam: General Appearance: Patient appears to be stated age is alert, directable, and cooperative. Behavior: Patient is calmly seated without any agitated behavior. Speech: Patient's speech is fluent and nonpressured. Mood/Affect: Mood is improving mildly, affect is anxious and tearful. Suicidality/Homicidality: Patient denies having any suicidal or homicidal ideation intent or plan. Perceptions: Patient denies any visual hallucinations and denies any auditory hallucinations Though content/process: There is no evidence of any delusional thought content and thought process is linear and goal-directed. Memory and concentration: AOX3, grossly intact for the purposes of this session Judgment and insight: Improving mildly Vital Signs Temp 97.5 F L 08/20/22 01:13 Pulse 117 H 08/20/22 09:04 Resp 20 08/20/22 09:04 BP 127/75 08/20/22 09:04 Pulse Ox 98 08/19/22 06:47 FiO2 Laboratory Results - Last 24 Hours 08/18/22 08/18/22 08/19/22 13:00 13:00 10:46 Sodium Potassium Chloride Carbon Dioxide Anion Gap BUN Creatinine Est GFR (CKD-EPI)AfAm Est GFR (CKD-EPI)NonAf Glucose Estimated Ave Glu mg/dL 105 Hemoglobin A1c 5.3 Calcium Total Bilirubin AST ALT Alkaline Phosphatase Total Protein Albumin TSH Urine Color Yellow Urine Appearance Clear Urine pH 5.5 Ur Specific [place] 1.020 Urine Protein Trace H Urine Glucose (UA) Negative Urine Ketones Negative Urine Blood Negative Urine Nitrite Negative Urine Bilirubin Negative Urine Urobilinogen <2.0 Ur Leukocyte Esterase Negative Urine HCG, Qual Not Detected 08/19/22 10:46 Sodium 139 Potassium 4.4 Chloride 107 Carbon Dioxide 25 Anion Gap 7 BUN 14 Creatinine 0.75 Est GFR (CKD-EPI)AfAm >90 Est GFR (CKD-EPI)NonAf >[address] Glu mg/dL Hemoglobin A1c Calcium 9.6 Total Bilirubin 0.4 AST 19 ALT 17 Alkaline Phosphatase 51 Total Protein 7.7 Albumin 4.6 TSH 1.170 Urine Color Urine Appearance Urine pH Ur Specific [place] Urine Protein Urine Glucose (UA) Urine Ketones Urine Blood Urine Nitrite Urine Bilirubin Urine Urobilinogen Ur Leukocyte Esterase Urine HCG, Qual Assessment Panic disorder without agoraphobia Generalized anxiety disorder Major depressive disorder Plan: -Patient continues to meet criteria for inpatient psychiatric admission for symptom stabilization and safety. Patient has signed adult voluntary form and medication consent and was placed in patient's chart. -Medications: Increase Zoloft to 150 mg daily for depression/anxiety Continue BuSpar 20 mg by mouth twice a day for anxiety Increase trazodone 20 mg by mouth at bedtime for insomnia Start Klonopin 0.5 mg by mouth 3 times a day when necessary for anxiety -When necessary Vistaril and Haldol for agitation/aggression. -SW on board for discharge planning. Encouraged the patient to participate in milieu.
[2022-08-20 12:04] LABS: Chol/HDL Ratio 2.83 Ratio; LDL Cholesterol,Calculated 52.7 mg/dL (0.0-131.0)
[2022-08-20] MEDS: traZODone HCL 100 MG TAB PO SCH (22:56)
[2022-08-21] MEDS ORDERED: SERTRALINE 50 MG TAB PO SCH (09:00)
[2022-08-21] MEDS: METOPROLOL SUCCINATE (ER) 25 MG TAB.ER.24H PO SCH (09:03)
[2022-08-21] MEDS: busPIRone HCl 10 MG TAB PO SCH ×2 (09:04→22:45)
--- NOTE | 2022-08-21 11:08 | P.PN ---
Progress Note - Text Progress Note Date: 08/21/22 Interval History: Patient was seen wandering the hallways and was directable and agreeable to speak with proposal lead writer in the office. The patient reports she has had a poor night of sleep. She expresses she continues to wake up in a panic and is experiencing feelings of hopelessness and helplessness. She states to this provider "I do not think I can keep living like this." She reports that she does not feel like she can return to her functional self or back to work. She denies any homicidal ideation. She reports no auditory or visual hallucinations. She reports no paranoia or other delusions. She does report klonopin was beneficial yesterday and was encouraged to take klonopin tonight. Mental Status Exam: General Appearance: Patient appears to be stated age is alert, directable, and cooperative. Behavior: Patient is calmly seated without any agitated behavior. Speech: Patient's speech is fluent and nonpressured. Mood/Affect: Mood is "I can't do this." Affect is depressed and tearful. Suicidality/Homicidality: Patient endorses suicidal ideation. No homicidal i deation. Perceptions: Patient denies any visual hallucinations and denies any auditory hallucinations Though content/process: Dysphoric today. Memory and concentration: AOX3, grossly intact for the purposes of this session Judgment and insight: Fair Vital Signs Temp 98.6 F 08/21/22 06:00 Pulse 81 08/21/22 06:00 Resp 17 08/21/22 06:00 BP 126/57 08/21/22 06:00 Pulse Ox 98 08/21/22 06:00 FiO2 Laboratory Results - Last 24 Hours 08/19/22 10:46 Triglycerides 115.00 Cholesterol 117.00 LDL Cholesterol, Calc 52.7 VLDL Cholesterol, Calc 23.00 HDL Cholesterol 41.30 Cholesterol/HDL Ratio 2.83 Assessment Panic disorder without agoraphobia Generalized anxiety disorder Major depressive disorder Plan: -Patient continues to meet criteria for inpatient psychiatric admission for symptom stabilization and safety. Patient has signed adult voluntary form and medication consent and was placed in patient's chart. -Medications: Increase Zoloft to 200 mg daily for depression/anxiety Continue BuSpar 20 mg by mouth twice a day for anxiety Continue Trazodone 100 mg by mouth at bedtime for insomnia Continue Klonopin 0.5 mg by mouth 3 times a day when necessary for anxiety - encourage use at bedtime. -When necessary Vistaril and Haldol for agitation/aggression. -SW on board for discharge planning. Encouraged the patient to participate in milieu.
[2022-08-21] MEDS: traZODone HCL 100 MG TAB PO SCH (22:46)
[2022-08-22 00:59] VITALS: RESP 16; TEMP 97.9
[2022-08-22] MEDS: busPIRone HCl 10 MG TAB PO SCH ×2 (08:58→22:29)
[2022-08-22] MEDS: METOPROLOL SUCCINATE (ER) 25 MG TAB.ER.24H PO SCH (08:59)
[2022-08-22] MEDS: SERTRALINE 100 MG TAB PO SCH (08:59)
[2022-08-22] MEDS ORDERED: clonazePAM 0.5 MG TAB PO PRN (12:51)
--- NOTE | 2022-08-22 16:13 | P.PN ---
Progress Note - Text Progress Note Date: 08/22/22 Interval history: Patient was seen sitting on her bed and talking with the unit nurse and her roommate, and was directable and agreeable to speak with account underwriter. She reports mood is anxious with heart racing and muscle tension, feeling shaky and nauseous. Last night she had difficulty sleeping after taking Trazodone 100 mg x 1, and so she took a Klonopin 0.5 mg x 1 around 1am and reports she feel asleep after that. This morning, her HR was 105 and BP was a bit lower at 118/56 so her metoprolol (she reports this was started in the ER for anxiety) was held this morning due to low diastolic BP. At this time patient denies any suicidal or homicidal ideation, intent or plan. Denies any auditory or visual hallucinations. Patient denies any side effects from the medications and has been compliant with meds. Mental status exam: General Appearance: Patient appears to be stated age, obese adult female, dressed in casual attire, fair eye contact. Behavior: No agitated behavior. Patient is calm and directable. Speech: Patient's speech is fluent and non-pressured. Mood/Affect: Mood is anxious, improving mildly, affect is congruent and constricted. Suicidality/Homicidality: Patient denies having any suicidal or homicidal ideation intent or plan. Perceptions: Patient denies any auditory or visual hallucinations. Though content/process: There is no evidence of any delusional thought content and thought process is linear and goal-directed. Memory and concentration: AOX3, grossly intact for the purposes of this session Judgment and insight: improving mildly Assessment/Plan: Continue with current diagnosis. Patient continues to meet criteria for inpatient psychiatric admission for symptom stabilization and safety. Discontinue Metoprolol ER 12.5 mg daily due to hypotension. Decrease Klonopin 0.5 mg TID PRN to 0.25 mg TID PRN for anxiety due to hypotensi on. Start Propranolol 10 mg TID PRN for anxiety. Monitor for medication compliance and for any psychotropic medication side effects. Will continue to monitor ongoing response to treatment. Encouraged participation in milieu.
[2022-08-22] MEDS: PROPRANOLOL 10 MG TAB PO PRN (17:39)
[2022-08-22] MEDS: traZODone HCL 100 MG TAB PO SCH (22:29)
[2022-08-23] MEDS: SERTRALINE 100 MG TAB PO SCH (08:39)
[2022-08-23] MEDS: busPIRone HCl 10 MG TAB PO SCH ×2 (08:39→22:49)
[2022-08-23] MEDS: PROPRANOLOL 10 MG TAB PO PRN (08:40)
[2022-08-23] MEDS ORDERED: PROPRANOLOL 10 MG TAB PO PRN (17:34)
[2022-08-23] MEDS ORDERED: clonazePAM 0.5 MG TAB PO PRN (17:39)
--- NOTE | 2022-08-23 17:40 | P.PN ---
Progress Note - Text Progress Note Date: 08/23/22 Interval history: Patient was seen socializing with peers in the [facility] and was directable and agreeable to speak with freelance copywriter. She reports mood is better today and feels her anxiety and sleep improved after starting the Propranolol last night, and taking low dose Klonopin 0.25 mg po x 1 at bedtime with her Trazodone to help her sleep. At this time patient denies any suicidal or homicidal ideation, intent or plan. Denies any auditory or visual hallucinations. Patient denies any side effects from the medications and has been compliant with meds. She plans to continue psychotherapy post discharge for her anxiety. Mental status exam: General Appearance: Patient appears to be stated age, obese adult female, dressed in casual attire, good eye contact. Behavior: No agitated behavior. Patient is calm and directable. Speech: Patient's speech is fluent and non-pressured. Mood/Affect: Mood is better today, affect is congruent and constricted. Suicidality/Homicidality: Patient denies having any suicidal or homicidal ideation intent or plan. Perceptions: Patient denies any auditory or visual hallucinations. Though content/process: There is no evidence of any delusional thought content and thought process is linear and goal-directed. Memory and concentration: AOX3, grossly intact for the purposes of this session Judgment and insight: improving mildly Assessment/Plan: Continue with current diagnosis. Patient continues to meet criteria for inpatient psychiatric admission for symptom stabilization and safety. Decrease Klonopin 0.25 mg TID PRN to Klonopin 0.25 mg QHS PRN for anxiety. Decrease Propranolol 10 mg TID PRN to 10 mg BID PRN for anxiety, to minimize risk of hypotension. Monitor for medication compliance and for any psychotropic medication side effects. Will continue to monitor ongoing response to treatment. Encouraged participation in milieu.
[2022-08-23] MEDS: traZODone HCL 100 MG TAB PO SCH (22:49)
[2022-08-24] MEDS: busPIRone HCl 10 MG TAB PO SCH (08:59)
[2022-08-24] MEDS: SERTRALINE 100 MG TAB PO SCH (09:00)
[2022-08-24 09:18] VITALS: BP 121/56; PULSE 103
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
== END 2022-08-24 14:34 | disposition home or self-care (01) | DRG 881 ==
LOC: EC 12:18 → 3MHU 18:24
PROVIDERS: ADMIT Psychiatry & Neurology Psychiatry; ATTEND Psychiatry & Neurology Psychiatry
DX: F32.9 Major depressive disorder, single episode, unspecified (principal); R45.851 Suicidal ideations; Z68.41 Body mass index [BMI] 40.0-44.9, adult; E66.01 Morbid (severe) obesity due to excess calories; F06.4 Anxiety disorder due to known physiological condition; F17.200 Nicotine dependence, unspecified, uncomplicated; F41.0 Panic disorder [episodic paroxysmal anxiety]; F41.1 Generalized anxiety disorder; G47.00 Insomnia, unspecified; Z63.72 Alcoholism and drug addiction in family; Z79.899 Other long term (current) drug therapy; Z81.1 Family history of alcohol abuse and dependence; Z81.8 Family history of other mental and behavioral disorders; Z20.822 Contact with and (suspected) exposure to COVID-19
CPT/HCPCS: 80053; 80061; 80306; 81003; 81025; 82075; 83036; 84443; 85025; 87635; 99285

== ENCOUNTER 2023-08-06 14:10 | Emergency (ER) | payer OTHER ==
--- NOTE | 2023-08-06 15:00 | ED ---
General Adult HPI - General Source: patient, RN notes reviewed Mode of arrival: ambulatory Limitations: no limitations <Artie Hyde - Last Filed: 08/06/23 14:58> <Kiera Valente - Last Filed: 08/07/23 00:24> - General Stated complaint: hemo 8.2-Abn Lab,Dizziness Time Seen by Provider: 08/06/23 14:58 - History of Present Illness Initial comments: 43-year-old female presents emergency Department with chief complaint of feeling lightheaded, dizzy. Patient states that she had recent ablation secondary to heavy menstrual cycles. She states that she's having worsening blood clots. Patient did have blood work on Wednesday showing hemoglobin of 8.2. She states she is more symptomatic and advised to come emergency department for evaluation. (Artie Hyde) - Related Data Previous Rx's Medication Instructions Recorded Sertraline [Zoloft] 200 mg PO DAILY 30 Days #30 tab 08/24/22 busPIRone HCl [Buspar] 20 mg PO BID 30 Days #30 tab 08/24/22 clonazePAM [KlonoPIN] 0.25 mg PO BID 30 Days #30 tab 08/24/22 hydrOXYzine pamoate [Vistaril] 25 mg PO Q8HR PRN 15 Days #45 cap 08/24/22 traZODone HCL [Desyrel] 100 mg PO HS 30 Days #30 tab 08/24/22 Metoprolol Succinate [Metoprolol 12.5 mg PO DAILY 30 Days #30 tab 08/25/22 Succinate ER] Allergies Allergy/AdvReac Type Severity Reaction Status Date / Time No Known Allergies Allergy Verified 08/06/23 15:38 Review of Systems ROS Other: All systems not noted in ROS Statement are negative. <Artie Hyde - Last Filed: 08/06/23 14:58> ROS Other: All systems not noted in ROS Statement are negative. <Kiera Valente - Last Filed: 08/07/23 00:24> ROS Statement: Those systems with pertinent positive or pertinent negative responses have been documented in the HPI. Past Medical History Past Medical History: No Reported History History of Any Multi-Drug Resistant Organisms: None Reported Past Surgical History: Adenoidectomy, Section Past Anesthesia/Blood Transfusion Reactions: No Reported Reaction Smoking Status: Never smoker <Artie Hyde - Last Filed: 08/06/23 14:58> General Exam <Artie Hyde - Last Filed: 08/06/23 14:58> Limitations: no limitations General appearance: alert, in no apparent distress Head exam: Present: atraumatic, normocephalic, normal inspection <Kiera Valnete - Last Filed: 08/07/23 00:24> - General Exam Comments Initial Comments: Visual Physical Exam Vital signs reviewed General: Well-appearing, nontoxic, no acute distress. Head: Normocephalic, atraumatic Eyes: PERRLA, EOMI ENT: Airway patent Chest: Nonlabored breathing Skin: No visual rash, normal skin tone Neuro: Alert and oriented 3 Musculoskeletal: No gross abnormalities (Artie Hyde) Course Vital Signs 08/06/23 08/06/23 15:38 22:18 Temperature 98.9 F Pulse Rate 95 94 Respiratory 18 18 Rate Blood Pressure 129/60 130/85 O2 Sat by Pulse 97 98 Oximetry Medical Decision Making <Artie Hyde - Last Filed: 08/06/23 14:58> - Lab Data Result diagrams: 08/06/23 15:32 08/06/23 15:32 <Kiera Valente - Last Filed: 08/07/23 00:24> - Medical Decision Making I completed the quick note portion of this chart signed Artie Hyde PA-C (Artie Hyde) Was pt. sent in by a medical professional or institution (ARINA Purdy, [employer] SCI[employer]EARCH, urgent care, hospital, or [facility]...) When possible be specific @ -No Did you speak to anyone other than the patient for history (EMS, parent, family, police, friend...)? What history was obtained from this source @ -No Did you review nursing and triage notes (agree or disagree)? Why? @ -I reviewed and agree with nursing and triage notes Were old charts reviewed (outside hosp., previous admission, EMS record, old EKG, old radiological studies, urgent care reports/EKG's, [facility] records)? Report findings @ -No old charts were reviewed Differential Diagnosis (chest pain, altered mental status, abdominal pain women, abdominal pain men, vaginal bleeding, weakness, fever, dyspnea, syncope, headache, dizziness, GI bleed, back pain, seizure, CVA, palpatations, mental health, musculoskeletal)? @ -Differential Vaginal Bleeding: Spontaneous , threatened , molar , ectopic , bloody show, incompetent cervix, abruptioplacenta, placenta previa, uterine rupture, dysfunctional uterine bleeding, hemorrhage, uterine fibroids, this is not meant to be an all-inclusive list. EKG interpreted by me (3pts min.). @ -EKG at 1613 shows sinus rhythm rate 88, KS 151, QRS 12, QTQTc [id number] X-rays interpreted by me (1pt min.). @ -None done CT interpreted by me (1pt min.). @ -None done U/S interpreted by me (1pt. min.). @ -None done What testing was considered but not performed or refused? (CT, X-rays, U/S, labs)? Why? @ -None What meds were considered but not given or refused? Why? @ -None Did you discuss the management of the patient with other professionals (professionals i.e. , PA, SUBJECT SCIENTIFIC RESEARCH, lab, RT, psych nurse, director social service, dough molder, teacher, public safety officer, home health care case manager)? Give summary @ -Management discussed with Dr. Carter recommends outpatient follow-up with patient's batter out Was smoking cessation discussed for >3mins.? @ -No Was critical care preformed (if so, how long)? @ -No Were there social determinants of health that impacted care today? How? (Homelessness, low income, unemployed, alcoholism, drug addiction, trans portation, low edu. Level, literacy, decrease access to med. care, [place] [facility], rehab)? @ -No Was there de-escalation of care discussed even if they declined (Discuss DNR or withdrawal of care, Hospice)? DNR status @ -No What co-morbidities impacted this encounter? (DM, HTN, Smoking, COPD, CAD, Cancer, CVA, ARF, Chemo, Hep., AIDS, mental health diagnosis, sleep apnea, morbid obesity)? @ -None Was patient admitted / discharged? Hospital course, mention meds given and route, prescriptions, significant lab abnormalities, going to OR and other pertinent info. @ -Charge. Patient presented to the emergency department for evaluation of vaginal bleeding. Patient had an endometrial ablation 15 days ago and has continued bleeding since then. She had a hemoglobin drawn on Wednesday which was 8.2. Redrawn today hemoglobin was 8.0. Patient's vital signs stable. The yunier ent does admit to some lightheadedness with standing. She states that she follows with her batter out next week. Case was discussed with Dr. Carter who recommends outpatient follow-up with the patient's batter out. This is discussed with the patient and she is understanding and agreeable with discharge plan. She is stable at time of discharge. Case discussed with Dr. Linton Undiagnosed new problem with uncertain prognosis? @ -No Drug Therapy requiring intensive monitoring for toxicity (Heparin, Nitro, Insulin, Cardizem)? @ -No Were any procedures done? @ -No Diagnosis/symptom? @ -menorrhagia Acute, or Chronic, or Acute on Chronic? @ -acute Uncomplicated (without systemic symptoms) or Complicated (systemic symptoms)? @ -uncomplicated Side effects of treatment? @ -No Exacerbation, Progression, or Severe Exacerbation? @ -No Poses a threat to life or bodily function? How? (Chest pain, USA, PR, pneumonia, PE, COPD, DKA, ARF, appy, cholecystitis, CVA, Diverticulitis, Homicidal, Suicidal, threat to staff... and all critical care pts) @ -No (Kiera Valente) - Lab Data Lab Results 08/06/23 08/06/23 08/06/23 Range/Units 15:32 15:32 15:32 WBC 10.3 (3.8-10.6) k/uL RBC 3.74 L (3.80-5.40) m/uL Hgb 8.0 L (11.4-16.0) gm/dL Hct 25.3 L (34.0-46.0) % MCV 67.7 L (80.0-100.0) fL MCH 21.5 L (25.0-35.0) pg MCHC 31.7 (31.0-37.0) g/dL RDW 18.6 H (11.5-15.5) % Plt Count 365 (150-450) k/uL MPV 7.4 Neutrophils % 67 % Lymphocytes % 24 % Monocytes % 5 % Eosinophils % 2 % Basophils % 1 % Neutrophils # 7.0 (1.3-7.7) k/uL Lymphocytes # 2.5 (1.0-4.8) k/uL Monocytes # 0.5 (0-1.0) k/uL Eosinophils # 0.2 (0-0.7) k/uL Basophils # 0.1 (0-0.2) k/uL Hypochromasia Moderate Anisocytosis Slight Microcytosis Marked Sodium 139 (137-145) mmol/L Potassium 4.0 (3.5-5.1) mmol/L Chloride 102 (98-107) mmol/L Carbon Dioxide 29 (22-30) mmol/L Anion Gap 8 mmol/L BUN 12 (7-17) mg/dL Creatinine 0.78 (0.52-1.04) mg/dL Est GFR (CKD-EPI)AfAm >90 (>60 ml/min/1.73 sqM) Est GFR (CKD-EPI)NonAf >90 (>60 ml/min/1.73 sqM) Glucose 113 H (74-99) mg/dL Calcium 8.6 (8.4-10.2) mg/dL Total Bilirubin 0.2 (0.2-1.3) mg/dL AST 23 (14-36) U/L ALT 22 (4-34) U/L Alkaline Phosphatase 68 (38-126) U/L Total Protein 6.8 (6.3-8.2) g/dL Albumin 3.7 (3.5-5.0) g/dL Blood Type Blood Type Confirm Blood Type Recheck No Previous Record Bld Type Recheck Status CABO Indicated Antibody Screen Spec Expiration Date 08/09/2023 - 233108/06/23 08/06/23 Range/Units 16:05 16:10 WBC (3.8-10.6) k/uL RBC (3.80-5.40) m/uL Hgb (11.4-16.0) gm/dL Hct (34.0-46.0) % MCV (80.0-100.0) fL MCH (25.0-35.0) pg MCHC (31.0-37.0) g/dL RDW (11.5-15.5) % Plt Count (150-450) k/uL MPV Neutrophils % % Lymphocytes % % Monocytes % % Eosinophils % % Basophils % % Neutrophils # (1.3-7.7) k/uL Lymphocytes # (1.0-4.8) k/uL Monocytes # (0-1.0) k/uL Eosinophils # (0-0.7) k/uL Basophils # (0-0.2) k/uL Hypochromasia Anisocytosis Microcytosis Sodium (137-145) mmol/L Potassium (3.5-5.1) mmol/L Chloride (98-107) mmol/L Carbon Dioxide (22-30) mmol/L Anion Gap mmol/L BUN (7-17) mg/dL Creatinine (0.52-1.04) mg/dL Est GFR (CKD-EPI)AfAm (>60 ml/min/1.73 sqM) Est GFR (CKD-EPI)NonAf (>60 ml/min/1.73 sqM) Glucose (74-99) mg/dL Calcium (8.4-10.2) mg/dL Total Bilirubin (0.2-1.3) mg/dL AST (14-36) U/L ALT (4-34) U/L Alkaline Phosphatase (38-126) U/L Total Protein (6.3-8.2) g/dL Albumin (3.5-5.0) g/dL Blood Type A Negative Blood Type Confirm A Negative Blood Type Recheck Bld Type Recheck Status Antibody Screen NEGATIVE Spec Expiration Date Disposition <Artie Hyde - Last Filed: 08/06/23 14:58> Is patient prescribed a controlled substance at d/c from ED?: No <Kiera Valente - Last Filed: 08/07/23 00:24> Clinical Impression: Menorrhagia Disposition: HOME SELF-CARE Condition: Stable Instructions (If sedation given, give patient instructions): Dysmenorrhea (ED) Additional Instructions: Please follow up with Dr. Alarcon. Return to the emergency department for new or worsening symptoms. Referrals: Gerson Min MD [Primary Care Provider] - 1-2 days
[2023-08-06 15:57] VITALS: RESP 18; TEMP 98.9
[2023-08-06 16:32] LABS: Anisocytosis Slight; Basophils # (A) 0.1 k/uL (0-0.2); Basophils % (A) 1 %; Eosinophils # (A) 0.2 k/uL (0-0.7); Eosinophils % (A) 2 %; HCT 25.3 % (34.0-46.0); Hypochromasia Moderate; Lymphocytes # (A) 2.5 k/uL (1.0-4.8); Lymphocytes % (A) 24 %; MCH 21.5 pg (25.0-35.0); MCHC 31.7 g/dL (31.0-37.0); MCV 67.7 fL (80.0-100.0); Mean Platelet Volume 7.4; Microcytosis Marked; Monocytes # (A) 0.5 k/uL (0-1.0); Monocytes % (A) 5 %; Neutrophils % (A) 67 %; Platelet Count 365 k/uL (150-450); RBC 3.74 m/uL (3.80-5.40); RDW 18.6 % (11.5-15.5); WBC 10.3 k/uL (3.8-10.6)
[2023-08-06 16:41] LABS: ALT 22 U/L (4-34); AST 23 U/L (14-36); African American GFR (CKD) >90 (>60 ml/min/1.73 sqM); Albumin 3.7 g/dL (3.5-5.0); Alkaline Phosphatase 68 U/L (38-126); Anion Gap 8 mmol/L; Blood Urea Nitrogen 12 mg/dL (7-17); Calcium 8.6 mg/dL (8.4-10.2); Carbon Dioxide 29 mmol/L (22-30); Chloride 102 mmol/L (98-107); Glucose 113 mg/dL (74-99); Non-African American GFR(CKD) >90 (>60 ml/min/1.73 sqM); Sodium 139 mmol/L (137-145); Total Bilirubin 0.2 mg/dL (0.2-1.3); Total Protein 6.8 g/dL (6.3-8.2)
[2023-08-06 22:35] VITALS: BP 130/85; PULSE 94
== END 2023-08-06 22:19 | disposition home or self-care (01) ==
LOC: EC 14:10
DX: N92.0 Excessive and frequent menstruation with regular cycle (principal)
CPT/HCPCS: 36415; 80053; 85025; 86850; 86900; 86901; 93005; 99284